=== PATIENT | male | born 1950 | race Caucasian/White ===

== ENCOUNTER 2017-09-16 12:36 | Outpatient (CLI) | payer OTHER ==
--- NOTE | 2017-09-16 13:43 | RAD ---
TWO VIEWS LEFT HIP: History: Fall. Pain. Comparison: None. FINDINGS: Contour of the femoral head is maintained. Hip joint space is preserved. No fracture. IMPRESSION: No fracture. POS: DANYEL
== END 2017-09-16 12:37 | disposition home or self-care (01) ==
LOC: SCSRAD 12:36
PROVIDERS: ATTEND Nurse Practitioner Family
DX: M25.552 Pain in left hip (principal)

== ENCOUNTER 2017-09-29 18:10 | Inpatient (IN) | payer OTHER, MEDICARE ==
[2017-09-29 19:44] VITALS: BMI 43.9
[2017-09-29] MEDS ORDERED: Ondansetron ODT 8 MG TAB PO PRN (23:21)
[2017-09-29] MEDS: Acetaminophen 325 MG TAB PO PRN (23:39)
[2017-09-29] MEDS ORDERED: Dextrose 5% in Water 1,000 ML IV PRN (23:41)
[2017-09-29] MEDS ORDERED: HumaLOG 300 UNITS/3 ML VIAL SC PRN (23:41)
[2017-09-29] MEDS ORDERED: Dextrose 50% Abboject 50 ML SYRINGE SLOW IVP PRN (23:41)
[2017-09-29] MEDS ORDERED: hydrOXYzine 25 MG TAB PO SCH (23:45)
--- NOTE | 2017-09-30 02:25 | HP ---
CHIEF COMPLAINT: Rash. HISTORY OF PRESENT ILLNESS: This patient is a 66-year-old male who has been dealing with a pruritic rash over his trunk since May. The patient reports that he started taking a new brand of ramipril in early May and within a week or two, he started developing some pruritic erythematous macules acr oss his chest area. That has continued to progress and spread to cover the majority of his body. It is now progressing up his neck and involves posterior scalp and extends down to his lower extremitie s. He reports that he has initial satellite lesions that become confluent. Now, he is developing so me lower extremity edema which is a new finding. The patient reports that he only stopped taking the ramipril about 3 weeks ago. In the interim, the patient has had numerous various treatments have at tempted without success. These have included multiple doses of prednisone, clindamycin, Diflucan, to lnaftate powder, betamethasone cream, ketoconazole and most recently, the patient saw Dr. Esquivel who is a professor of musicology. A skin biopsy was done, which appeared to be consistent with psoriasis and the pat ient was subsequently started on acitretin 25 mg b.i.d. Patient was on this for 4 days when he prese nted back to his PCP's office and was having some worsening of his rash with some generalized weaknes s and new swelling in the hands and feet. Subsequently, the patient was referred to the hospital for direct admission. The patient denies specifically having any fever, although he does get chill keyon use of the heat emanating from the erythema. The patient has had no recent travel and no lifestyle c hanges, contacts with insects or ticks. He has had some slight intermittent loose stools, but nothin g that he considered significantly abnormal. REVIEW OF SYSTEMS: Also notable for about 7-pound weight loss over the past couple of weeks, but he attributes that to being on the steroids and various things that have adversely affected his appetite . He has had poor sleep due to the itching. He has some normal presbyopia vision changes. He attri butes some weakness to some generalized fatigue after having dealt with this and sleeping poorly. PAST MEDICAL HISTORY: Notable for diabetes, hypertension, hyperlipidemia, and coronary artery diseas e. The patient has had 5 stents 15 years ago. He is continually followed by Dr. Woody. PAST SURGICAL HISTORY: He has had a cholecystectomy and a tonsillectomy. FAMILY HISTORY: Notable for a CVA and his father had at 55. Mother had diabetes. ALLERGIES: None. SOCIAL HISTORY: The patient is a nonsmoker, nondrinker, nondrug user. He is . He is [employer] [place] and his is the one, who is a surrogate decision maker. HOME MEDICATIONS: Include fish oil 1000 mg 1 p.o. b.i.d., ICAPS 1 p.o. every day, lysine 500 mg ever y day, aspirin 81 mg every day, carvedilol 25 mg b.i.d., acitretin 25 mg p.o. b.i.d., isosorbide mono nitrate ER 30 mg every day, Plavix 75 every day, ondansetron 5 mg p.o. t.i.d. p.r.n., Lopressor 50 mg p.o. b.i.d. (recent addition to replace the ramipril) and metformin 1000 mg p.o. b.i.d. PHYSICAL EXAMINATION: VITAL SIGNS: Temperature is 98.3, pulse 89, respirations 16. He is 100% on room air, BP was 180/87. GENERAL APPEARANCE: The patient is an extremely pleasant, jovial, age appropriate male. He is in no distress. He is awake, alert, oriented, pleasant, cooperative. He is morbidly obese. HEENT: PERRL. He has no OP lesions. NECK: Supple and symmetric. HEART: Regular rate and rhythm without murmurs, gallops, or rubs. LUNGS: Clear to auscultation bilaterally with good chest wall expansion and air exchange. ABDOMEN: Soft, nontender, nondistended with positive bowel sounds. No masses and no organomegaly. EXTREMITIES: Noted to have some puffy edema of the hands and 2+ to 3+ pitting edema of the lower ext remities to the level of the knee. SKIN: Reveals a diffuse erythematous skin from the jaw line and mid posterior scalp over the entire trunk and genital area including the upper thighs down to the mid calves where there are satellite ma cular areas that also extends down the upper extremities to the dorsum of the hands that appears to b e as sparing the fingers and palm on the upper trunk and to a lesser degree the lower trunk and pelvi s. In genitourinary area, the patient has a desquamation of the superficial skin with some exfoliati ve accumulation in the skin fold areas such as the pannus and axillary areas. LABORATORY DATA: The patient had glucose performed in the ER which was 100. There are some outside notes including labs in which the white count is 10.0, hemoglobin 13.8. There is no differential. C hemistries notable for BUN of 17, creatinine 0.9, total bilirubin 0.5, AST 16, ALT 21, alkaline phosp hatase 46, albumin 4.0. Again, the skin biopsy report is included as well. The microscopic descript ion indicates the biopsy specimen contains confluent parakeratosis containing small collections of ne utrophils beneath which there is moderate psoriasiform epidermal hyperplasia. There is dilated tortu ous blood vessels at the tips of some of the dermal papillae and there is a sparse superficial periva scular infiltrate of lymphocytes, histiocytes, and a few neutrophils. Cumulative additional labs ind icate the patient had two other CBCs going back in June without significant eosinophilia. IMPRESSION AND PLAN: 1. Diffuse dermatitis with some exfoliation that is significantly pruritic of unclear etiology. The patient's biopsy is consistent with psoriasis; however, the actual appearance of it in the distribut ion and the pruritic nature of it makes that challenging. The patient will be started on Atarax and H2 antagonist. We will not resume steroids at this time as the patient did not tolerate those very w ell and they did not seem to have a significant positive impact on him. I suspect this patient is small[place] ving a delayed drug eruption that has been ongoing as the patient continued to use the offending agen t up until 2-3 weeks ago. I suspect this is why the steroids were not having a significant impact on it as well. I am not clear if there is allergy immunology that is available to consult on this kenisha ent while here. I will check a CBC in the morning just with a manual differential to look for any ty pe of eosinophilia. We will monitor for any true fever, although it sounds like the patient really m ay not have actually been having fever. We will consider outpatient contact with Allergy/Immunology if they are not available, so that the patient can have a direct follow up there from this stay. 2. Diabetes mellitus. We will continue with Accu-Cheks and his usual home medications. 3. Hypertension. The patient had his ramipril recently discontinued and metoprolol added on top of the existing Coreg. We will continue those. 4. Hyperlipidemia. Continue with the current medications. 5. History of coronary artery disease. We will continue with the Plavix, aspirin, and isosorbide.
[2017-09-30 05:16] LABS: Hemoglobin 12.4 g/dL (14.0-18.0); Mean Corpuscular Hemoglobin 29.8 pg (27.0-31.0); Mean Corpuscular Volume 90.4 fL (78.0-98.0); Mean Platelet Volume 6.5 fL (7.4-10.4); Platelet Count 222 thou/uL (130-400); Red Blood Cell (RBC) Count 4.14 mill/uL (4.70-6.10); White Blood Cell (WBC) Count 9.3 thou/uL (4.8-10.8)
[2017-09-30 05:17] LABS: Band 1 % (5-11); Lymphocytes 44 % (21-51); MDiff Complete? YES; Monocytes 1 % (0-10); Neutrophil 54 % (42-75); PLT Morphology Comment Appears Adequate
[2017-09-30] MEDS: Acetaminophen 325 MG TAB PO PRN ×2 (05:34→09:58)
[2017-09-30 05:51] LABS: Bilirubin Negative (Negative); Blood, Urine Negative (Negative); Clarity CLEAR (Clear); Glucose, Urine (Dipstick) Negative (Negative); Leukocyte Negative (Negative); Nitrite Negative (Negative); Protein, Urine (Dipstick) 30 mg/dL (Neg-Trace); Specific Gravity, Urine 1.031 (1.002-1.036); Urobilinogen 0.2 mg/dL (0.2-1.0); pH, Urine 5.5 (5.0-9.0)
[2017-09-30 05:53] LABS: Bacteria/HPF None Seen HPF (None Seen); Hyaline Casts/LPF 4-6 HYALINE CAST LPF (0-3 Hyaline); Pathc Cast-AUWi Flag 1.01 (0-2.49); RBC/HPF 0-3 HPF (0-3); Squamous Epithelial 0-3 HPF (0-3); WBC/HPF 0-3 HPF (0-3)
[2017-09-30] MEDS: Clopidogrel Bisulfate 75 MG TAB PO SCH (09:19)
[2017-09-30] MEDS: Carvedilol 25 MG TAB PO SCH ×2 (09:19→22:02)
[2017-09-30] MEDS: Aspirin 81 mg Enteric Coated Tablet PO SCH (09:19)
[2017-09-30] MEDS: Famotidine 20 MG TAB PO SCH ×2 (09:20→22:28)
[2017-09-30] MEDS: Fish Oil 1,000 MG CAP PO SCH ×2 (09:20→22:02)
[2017-09-30] MEDS: hydrOXYzine 25 MG TAB PO SCH ×4 (09:20→22:02)
[2017-09-30] MEDS: Lysine 500 MG TAB PO SCH (09:20)
[2017-09-30] MEDS: Metoprolol Tartrate 50 MG TAB PO SCH (09:21)
[2017-09-30] MEDS: Vit A,C & E/Lutein/Minerals Tablet PO SCH (09:21)
[2017-09-30] MEDS: metFORMIN 500 MG TAB PO SCH ×2 (09:21→22:01)
[2017-09-30] MEDS ORDERED: Nystatin Powder 15 GM BOT TOP PRN (14:41)
[2017-09-30] MEDS ORDERED: diphenhydrAMINE 25 MG CAP PO PRN (14:42)
[2017-09-30] MEDS ORDERED: Sod Chloride/Lan/MO/Peet,Wh (Lubriderm) Lotion 180 ml Bottle TOP PRN (14:44)
[2017-09-30] MEDS: Sodium Chloride 0.9% 1,000 ML IV SCH (15:29)
[2017-09-30] MEDS: oxyCODONE 5 MG TAB PO PRN ×2 (16:24→22:17)
--- NOTE | 2017-09-30 20:52 | PDOC.PN ---
- Subjective Encounter Start Date: 09/30/17 Encounter Start Time: 12:30 Subjective: pt up in bed complains of itching all over - Objective Resuscitation Status: Resuscitation Status FULL:Full Resuscitation Vital Signs & Weight: Vital Signs (12 hours) Temp Pulse Resp BP Pulse Ox 09/30/17 20:00 98.2 F 80 16 155/78 H 95 09/30/17 17:39 98.2 F 82 20 100 09/30/17 17:15 97.7 F 83 16 146/82 H 100 09/30/17 15:01 98.2 F 82 20 132/66 97 09/30/17 11:03 97.8 F 76 20 141/74 H 94 L Weight Weight 306 lb 1.6 oz I&O: 09/29/17 09/30/17 10/01/17 06:59 06:59 06:59 Intake Total 360 600 Output Total 300 Balance 60 600 Result Diagrams: 10/01/17 09:22 10/01/17 09:22 Additional Labs: Accuchecks 09/30/17 09/30/17 09/30/17 16:52 11:09 05:27 POC Glucose 139 H 126 H 114 H 09/29/17 20:54 POC Glucose 100 Phys Exam - Physical Examination HEENT: PERRLA, moist MMs, sclera anicteric, TM's clear, oral pharynx no lesions , 2+ tonsils Neck: no nodes, no JVD, supple, full ROM Respiratory: no wheezing, no rales, no rhonchi, wheezing present, clear to auscultation bilateral Cardiovascular: RRR, no significant murmur, no rub, gallop, irregular Musculoskeletal: edema present Deviation from normal: significant erythema all over body, skin exfoliate all over, painful touch Dx/Plan (1) Erythroderm Code(s): L53.9 - ERYTHEMATOUS CONDITION, UNSPECIFIED Status: Acute (2) HTN (hypertension) Code(s): I10 - ESSENTIAL (PRIMARY) HYPERTENSION Status: Acute - Plan erythroderma most likely from ramipril -: will conitnue iv hydration -: significnat erythem and exfoliating all over body with edema -: concerns for possible infection and dehydration -: will start pt on abx * . Review of Systems - Review of Systems ENT: negative: Ear Pain, Ear Discharge, Nose Pain, Nose Discharge, Nose Congestion, Mouth Pain, Mouth Swelling, Throat Pain, Throat Swelling, Other Respiratory: negative: Cough, Dry, Shortness of Breath, Hemoptysis, SOB with Excertion, Pleuritic Pain, Sputum, Wheezing Cardiovascular: negative: chest pain, palpitations, orthopnea, paroxysmal nocturnal dyspnea, edema, light headedness, other Gastrointestinal: negative: Nausea, Vomiting, Abdominal Pain, Diarrhea, Constipation, Melena, Hematochezia, Other Genitourinary: negative: Dysuria, Frequency, Incontinence, Hematuria, Retention , Other Skin: Rash - Medications/Allergies Allergies/Adverse Reactions: Allergies Allergy/AdvReac Type Severity Reaction Status Date / Time No Known Drug Allergies Allergy Verified 09/29/17 19:51 Medications: Current Medications Acetaminophen (Tylenol) 650 mg PO Q4H PRN PRN Reason: Headache/Fever or Pain Last Admin: 10/01/17 11:25 Dose: 650 mg Aspirin (Ecotrin) 81 mg PO DAILY [facility] Last Admin: 10/01/17 08:00 Dose: 81 mg Carvedilol (Coreg) 25 mg PO BID [facility] Last Admin: 10/01/17 08:01 Dose: 25 mg Clopidogrel Bisulfate (Plavix) 75 mg PO DAILY [facility] Last Admin: 10/01/17 08:00 Dose: 75 mg Dextrose/Water (Dextrose 50%) 25 gm SLOW IVP PRN PRN PRN Reason: Hypoglycemia Diphenhydramine HCl (Benadryl) 25 mg PO Q6H PRN PRN Reason: Itching & Insomnia Famotidine (Pepcid) 20 mg PO BID [facility] Last Admin: 10/01/17 08:01 Dose: 20 mg Fish Oil (Fish Oil) 1,000 mg PO BID [facility] Last Admin: 10/01/17 08:00 Dose: 1,000 mg Glucagon (Glucagon) 1 mg IM PRN PRN PRN Reason: Hypoglycemia Hydroxyzine HCl (Atarax) 25 mg PO QID [facility] Last Admin: 10/01/17 12:50 Dose: 25 mg Dextrose/Water (D5w) 1,000 mls @ 0 mls/hr IV .Q0M PRN PRN Reason: Hypoglycemia Sodium Chloride (Normal Saline 0.9%) 1,000 mls @ 100 mls/hr IV .Q10H [facility] Last Admin: 10/01/17 11:15 Dose: Not Given Insulin Human Lispro (Humalog) 0 units SC .MILD SLIDING SCALE PRN PRN Reason: Mild Correctional Scale Isosorbide Mononitrate (Imdur Er) 30 mg PO DAILY [facility] Last Admin: 10/01/17 08:01 Dose: 30 mg Lysine (L-Lysine) 500 mg PO DAILY [facility] Last Admin: 10/01/17 08:01 Dose: 500 mg Metformin HCl (Glucophage) 1,000 mg PO BID [facility] Last Admin: 10/01/17 08:00 Dose: 1,000 mg Metoprolol Tartrate (Lopressor) 50 mg PO DAILY [facility] Last Admin: 10/01/17 08:01 Dose: 50 mg Multi-Ingredient Lotion (Lubriderm Lotion) 0 ml TOP Q4H PRN PRN Reason: Topical Irritations Last Admin: 09/30/17 22:21 Dose: 1 applic Multivitamins/Minerals (Ocuvite With Lutein) 1 tab PO DAILY [facility] Last Admin: 10/01/17 08:00 Dose: 1 tab Nystatin (Mycostatin Powder) 0 gm TOP BID PRN PRN Reason: Topical Irritations Ondansetron HCl (Zofran Odt) 8 mg PO TIDPRN PRN PRN Reason: Nausea Oxycodone HCl (Oxycodone Ir) 5 mg PO Q4H PRN PRN Reason: Mild Pain (1-3) Last Admin: 09/30/17 22:17 Dose: 5 mg
[2017-10-01] MEDS: Sodium Chloride 0.9% 1,000 ML IV SCH ×3 (02:35→22:35)
[2017-10-01] MEDS: Fish Oil 1,000 MG CAP PO SCH ×2 (08:00→20:28)
[2017-10-01] MEDS: Aspirin 81 mg Enteric Coated Tablet PO SCH (08:00)
[2017-10-01] MEDS: metFORMIN 500 MG TAB PO SCH ×2 (08:00→20:28)
[2017-10-01] MEDS: Clopidogrel Bisulfate 75 MG TAB PO SCH (08:00)
[2017-10-01] MEDS: Vit A,C & E/Lutein/Minerals Tablet PO SCH (08:00)
[2017-10-01] MEDS: Lysine 500 MG TAB PO SCH (08:01)
[2017-10-01] MEDS: Carvedilol 25 MG TAB PO SCH ×2 (08:01→20:28)
[2017-10-01] MEDS: hydrOXYzine 25 MG TAB PO SCH ×4 (08:01→20:28)
[2017-10-01] MEDS: Metoprolol Tartrate 50 MG TAB PO SCH (08:01)
[2017-10-01] MEDS: Famotidine 20 MG TAB PO SCH ×2 (08:01→20:28)
[2017-10-01 09:57] LABS: #Eosinphils 0.4 thou/uL (0.0-0.7); #Lymphocytes 1.8 thou/uL (1.20-3.40); #Monocytes 0.7 thou/uL (0.11-0.59); #Neutrophils 6.5 thou/uL (1.40-6.50); %Basophils 0.5 % (0.0-1.0); %Eosinophils 4.6 % (0.0-10.0); %Lymphocytes 18.8 % (21.0-51.0); %Monocytes 7.8 % (0.0-10.0); %Neutrophils 68.3 % (42.0-75.0); Hemoglobin 13.3 g/dL (14.0-18.0); Mean Corpuscular Volume 90.8 fL (78.0-98.0); Mean Platelet Volume 6.7 fL (7.4-10.4); Platelet Count 219 thou/uL (130-400); RBC Distribution Width 14.9 % (11.5-14.5); Red Blood Cell (RBC) Count 4.45 mill/uL (4.70-6.10); White Blood Cell (WBC) Count 9.4 thou/uL (4.8-10.8)
[2017-10-01 10:10] LABS: Anion Gap 11 mmol/L (10-20); BUN (Urea Nitrogen) 9 mg/dL (8.4-25.7); Calc. Creatinine Clearance 168 mL/min (70-130); Calcium 8.6 mg/dL (7.8-10.44); Carbon Dioxide 27 mmol/L (23-31); Chloride 108 mmol/L (98-107); Estimated GFR-MDRD Greater than 90; Glucose 129 mg/dL (80-115); Potassium 4.3 mmol/L (3.5-5.1); Sodium 142 mmol/L (136-145)
[2017-10-01] MEDS: Acetaminophen 325 MG TAB PO PRN (11:25)
--- NOTE | 2017-10-01 14:53 | PDOC.PN ---
- Subjective Encounter Start Date: 10/01/17 Encounter Start Time: 10:55 Subjective: pt up in bed states he feels a little better - Objective Resuscitation Status: Resuscitation Status FULL:Full Resuscitation Vital Signs & Weight: Vital Signs (12 hours) Temp Pulse Resp BP Pulse Ox 10/01/17 11:40 97.6 F 80 20 161/89 H 97 10/01/17 08:00 98.7 F 82 18 136/85 97 Weight Weight 306 lb 1.6 oz I&O: 09/30/17 10/01/17 10/02/17 06:59 06:59 06:59 Intake Total 360 600 720 Output Total 300 Balance 60 600 720 Result Diagrams: 10/01/17 09:22 10/01/17 09:22 Additional Labs: Accuchecks 10/01/17 10/01/17 09/30/17 11:37 04:56 16:52 POC Glucose 92 110 139 H Phys Exam - Physical Examination HEENT: PERRLA, moist MMs, sclera anicteric, TM's clear, oral pharynx no lesions , 2+ tonsils Neck: no nodes, no JVD, supple, full ROM Respiratory: no wheezing, no rales, no rhonchi, wheezing present, clear to auscultation bilateral Cardiovascular: RRR, no significant murmur, no rub, gallop, irregular Deviation from normal: significant erythema all over, skin is sloughing off Dx/Plan (1) Erythroderm Code(s): L53.9 - ERYTHEMATOUS CONDITION, UNSPECIFIED Status: Acute (2) HTN (hypertension) Code(s): I10 - ESSENTIAL (PRIMARY) HYPERTENSION Status: Acute - Plan will continue iv hydration, edema to his upper and lower ext has improved -: mildly. will continue abx for now. * . Review of Systems - Review of Systems ENT: negative: Ear Pain, Ear Discharge, Nose Pain, Nose Discharge, Nose Congestion, Mouth Pain, Mouth Swelling, Throat Pain, Throat Swelling, Other Respiratory: negative: Cough, Dry, Shortness of Breath, Hemoptysis, SOB with Excertion, Pleuritic Pain, Sputum, Wheezing Cardiovascular: negative: chest pain, palpitations, orthopnea, paroxysmal nocturnal dyspnea, edema, light headedness, other Gastrointestinal: negative: Nausea, Vomiting, Abdominal Pain, Diarrhea, Constipation, Melena, Hematochezia, Other Genitourinary: negative: Dysuria, Frequency, Incontinence, Hematuria, Retention , Other Skin: Rash - Medications/Allergies Allergies/Adverse Reactions: Allergies Allergy/AdvReac Type Severity Reaction Status Date / Time No Known Drug Allergies Allergy Verified 09/29/17 19:51 Medications: Current Medications Acetaminophen (Tylenol) 650 mg PO Q4H PRN PRN Reason: Headache/Fever or Pain Last Admin: 10/01/17 11:25 Dose: 650 mg Aspirin (Ecotrin) 81 mg PO DAILY [facility] [place] Last Admin: 10/01/17 08:00 Dose: 81 mg Carvedilol (Coreg) 25 mg PO BID [facility] [place] Last Admin: 10/01/17 08:01 Dose: 25 mg Clopidogrel Bisulfate (Plavix) 75 mg PO DAILY [facility] [place] Last Admin: 10/01/17 08:00 Dose: 75 mg Dextrose/Water (Dextrose 50%) 25 gm SLOW IVP PRN PRN PRN Reason: Hypoglycemia Diphenhydramine HCl (Benadryl) 25 mg PO Q6H PRN PRN Reason: Itching & Insomnia Famotidine (Pepcid) 20 mg PO BID [facility] [place] Last Admin: 10/01/17 08:01 Dose: 20 mg Fish Oil (Fish Oil) 1,000 mg PO BID [facility] [place] Last Admin: 10/01/17 08:00 Dose: 1,000 mg Glucagon (Glucagon) 1 mg IM PRN PRN PRN Reason: Hypoglycemia Hydroxyzine HCl (Atarax) 25 mg PO QID [facility] Last Admin: 10/01/17 12:50 Dose: 25 mg Dextrose/Water (D5w) 1,000 mls @ 0 mls/hr IV .Q0M PRN PRN Reason: Hypoglycemia Sodium Chloride (Normal Saline 0.9%) 1,000 mls @ 100 mls/hr IV .Q10H [facility] [place] Last Admin: 10/01/17 11:15 Dose: Not Given Insulin Human Lispro (Humalog) 0 units SC .MILD SLIDING SCALE PRN PRN Reason: Mild Correctional Scale Isosorbide Mononitrate (Imdur Er) 30 mg PO DAILY [facility] [place] Last Admin: 10/01/17 08:01 Dose: 30 mg Lysine (L-Lysine) 500 mg PO DAILY [facility] Last Admin: 10/01/17 08:01 Dose: 500 mg Metformin HCl (Glucophage) 1,000 mg PO BID [facility] [place] Last Admin: 10/01/17 08:00 Dose: 1,000 mg Metoprolol Tartrate (Lopressor) 50 mg PO DAILY [facility] [place] Last Admin: 10/01/17 08:01 Dose: 50 mg Multi-Ingredient Lotion (Lubriderm Lotion) 0 ml TOP Q4H PRN PRN Reason: Topical Irritations Last Admin: 09/30/17 22:21 Dose: 1 applic Multivitamins/Minerals (Ocuvite With Lutein) 1 tab PO DAILY [facility] [place] Last Admin: 10/01/17 08:00 Dose: 1 tab Nystatin (Mycostatin Powder) 0 gm TOP BID PRN PRN Reason: Topical Irritations Ondansetron HCl (Zofran Odt) 8 mg PO TIDPRN PRN PRN Reason: Nausea Oxycodone HCl (Oxycodone Ir) 5 mg PO Q4H PRN PRN Reason: Mild Pain (1-3) Last Admin: 09/30/17 22:17 Dose: 5 mg
[2017-10-01] MEDS: Cephalexin 250 MG CAP PO SCH (17:13)
[2017-10-02] MEDS: Cephalexin 250 MG CAP PO SCH ×4 (00:15→16:38)
[2017-10-02] MEDS: Sodium Chloride 0.9% 1,000 ML IV SCH (07:45)
[2017-10-02] MEDS: Metoprolol Tartrate 50 MG TAB PO SCH (07:46)
[2017-10-02] MEDS: metFORMIN 500 MG TAB PO SCH ×2 (07:46→20:48)
[2017-10-02] MEDS: Fish Oil 1,000 MG CAP PO SCH ×2 (07:46→20:48)
[2017-10-02] MEDS: oxyCODONE 5 MG TAB PO PRN (07:46)
[2017-10-02] MEDS: Aspirin 81 mg Enteric Coated Tablet PO SCH (07:47)
[2017-10-02] MEDS: Famotidine 20 MG TAB PO SCH ×2 (07:47→20:48)
[2017-10-02] MEDS: Clopidogrel Bisulfate 75 MG TAB PO SCH (07:47)
[2017-10-02] MEDS: Lysine 500 MG TAB PO SCH (07:47)
[2017-10-02] MEDS: Vit A,C & E/Lutein/Minerals Tablet PO SCH (07:47)
[2017-10-02] MEDS: Carvedilol 25 MG TAB PO SCH ×2 (07:47→20:48)
[2017-10-02] MEDS: hydrOXYzine 25 MG TAB PO SCH ×4 (08:51→20:48)
[2017-10-02] MEDS ORDERED: Furosemide 40 MG/4 ML VIAL SLOW IVP SCH (14:15)
[2017-10-02] MEDS: Betamethasone 0.1% Cream 15 GM TUBE TOP SCH ×2 (16:38→20:48)
[2017-10-02] MEDS ORDERED: traMADol HCl 50 MG TAB PO PRN (17:20)
[2017-10-02] MEDS ORDERED: Nystatin Ointment 15 GM TUBE TOP PRN (17:22)
--- NOTE | 2017-10-02 17:23 | PDOC.PN ---
- Subjective Encounter Start Date: 10/02/17 Encounter Start Time: 11:00 Subjective: pt up in bed complains of itching - Objective Resuscitation Status: Resuscitation Status FULL:Full Resuscitation Vital Signs & Weight: Vital Signs (12 hours) Temp Pulse Resp BP Pulse Ox 10/02/17 08:00 97.8 F 79 18 124/74 96 Weight Weight 306 lb 1.6 oz I&O: 10/01/17 10/02/17 10/03/17 06:59 06:59 06:59 Intake Total 600 1080 600 Balance 600 1080 600 Result Diagrams: 10/01/17 09:22 10/01/17 09:22 Additional Labs: Accuchecks 10/02/17 10/02/17 11:19 06:20 POC Glucose 93 93 Phys Exam - Physical Examination HEENT: PERRLA, moist MMs, sclera anicteric, TM's clear, oral pharynx no lesions , 2+ tonsils Neck: no nodes, no JVD, supple, full ROM Respiratory: no wheezing, no rales, no rhonchi, wheezing present, clear to auscultation bilateral Cardiovascular: RRR, no significant murmur, no rub, gallop, irregular Musculoskeletal: no edema, pulses present, edema present Deviation from normal: significant edema, erythema still present all over Dx/Plan (1) Erythroderm Code(s): L53.9 - ERYTHEMATOUS CONDITION, UNSPECIFIED Status: Acute (2) HTN (hypertension) Code(s): I10 - ESSENTIAL (PRIMARY) HYPERTENSION Status: Acute - Plan will disconitnue fluids for now -: will give lasix -: will start on steroid cream * . Review of Systems - Review of Systems ENT: negative: Ear Pain, Ear Discharge, Nose Pain, Nose Discharge, Nose Congestion, Mouth Pain, Mouth Swelling, Throat Pain, Throat Swelling, Other Respiratory: negative: Cough, Dry, Shortness of Breath, Hemoptysis, SOB with Excertion, Pleuritic Pain, Sputum, Wheezing Cardiovascular: negative: chest pain, palpitations, orthopnea, paroxysmal nocturnal dyspnea, edema, light headedness, other Gastrointestinal: negative: Nausea, Vomiting, Abdominal Pain, Diarrhea, Constipation, Melena, Hematochezia, Other Skin: Rash - Medications/Allergies Allergies/Adverse Reactions: Allergies Allergy/AdvReac Type Severity Reaction Status Date / Time No Known Drug Allergies Allergy Verified 09/29/17 19:51 Medications: Current Medications Acetaminophen (Tylenol) 650 mg PO Q4H PRN PRN Reason: Headache/Fever or Pain Last Admin: 10/01/17 11:25 Dose: 650 mg Aspirin (Ecotrin) 81 mg PO DAILY [facility] Last Admin: 10/02/17 07:47 Dose: 81 mg Betamethasone Valerate (Valisone 0.1% Cream) 1 gm TOP QID [facility] Last Admin: 10/02/17 16:38 Dose: 1 applic Carvedilol (Coreg) 25 mg PO BID [facility] Last Admin: 10/02/17 07:47 Dose: 25 mg Cephalexin (Keflex) 250 mg PO Q6HR [facility] Last Admin: 10/02/17 16:38 Dose: 250 mg Clopidogrel Bisulfate (Plavix) 75 mg PO DAILY [facility] Last Admin: 10/02/17 07:47 Dose: 75 mg Dextrose/Water (Dextrose 50%) 25 gm SLOW IVP PRN PRN PRN Reason: Hypoglycemia Diphenhydramine HCl (Benadryl) 25 mg PO Q6H PRN PRN Reason: Itching & Insomnia Famotidine (Pepcid) 20 mg PO BID [facility] Last Admin: 10/02/17 07:47 Dose: 20 mg Fish Oil (Fish Oil) 1,000 mg PO BID [facility] Last Admin: 10/02/17 07:46 Dose: 1,000 mg Furosemide (Lasix) 40 mg SLOW IVP ONE [facility] Glucagon (Glucagon) 1 mg IM PRN PRN PRN Reason: Hypoglycemia Hydroxyzine HCl (Atarax) 25 mg PO QID [facility] Last Admin: 10/02/17 16:38 Dose: 25 mg Dextrose/Water (D5w) 1,000 mls @ 0 mls/hr IV .Q0M PRN PRN Reason: Hypoglycemia Insulin Human Lispro (Humalog) 0 units SC .MILD SLIDING SCALE PRN PRN Reason: Mild Correctional Scale Isosorbide Mononitrate (Imdur Er) 30 mg PO DAILY [facility] Last Admin: 10/02/17 07:46 Dose: 30 mg Lysine (L-Lysine) 500 mg PO DAILY [facility] Last Admin: 10/02/17 07:47 Dose: 500 mg Metformin HCl (Glucophage) 1,000 mg PO BID [facility] Last Admin: 10/02/17 07:46 Dose: 1,000 mg Metoprolol Tartrate (Lopressor) 50 mg PO DAILY [facility] Last Admin: 10/02/17 07:46 Dose: 50 mg Multi-Ingredient Lotion (Lubriderm Lotion) 0 ml TOP Q4H PRN PRN Reason: Topical Irritations Last Admin: 09/30/17 22:21 Dose: 1 applic Multivitamins/Minerals (Ocuvite With Lutein) 1 tab PO DAILY [facility] Last Admin: 10/02/17 07:47 Dose: 1 tab Nystatin (Mycostatin Powder) 0 gm TOP BID PRN PRN Reason: Topical Irritations Ondansetron HCl (Zofran Odt) 8 mg PO TIDPRN PRN PRN Reason: Nausea Oxycodone HCl (Oxycodone Ir) 5 mg PO Q4H PRN PRN Reason: Mild Pain (1-3) Last Admin: 10/02/17 07:46 Dose: 5 mg Tramadol HCl (Ultram) 50 mg PO Q6H PRN PRN Reason: Pain
[2017-10-03] MEDS: Cephalexin 250 MG CAP PO SCH ×4 (00:08→18:00)
[2017-10-03 05:16] LABS: #Eosinphils 0.4 thou/uL (0.0-0.7); #Lymphocytes 2.1 thou/uL (1.20-3.40); #Monocytes 1.1 thou/uL (0.11-0.59); #Neutrophils 6.2 thou/uL (1.40-6.50); %Basophils 0.5 % (0.0-1.0); %Eosinophils 4.4 % (0.0-10.0); %Lymphocytes 21.1 % (21.0-51.0); %Monocytes 10.8 % (0.0-10.0); %Neutrophils 63.2 % (42.0-75.0); Hemoglobin 12.3 g/dL (14.0-18.0); Mean Corpuscular HGB CONC 32.3 g/dL (32.0-36.0); Mean Corpuscular Hemoglobin 29.1 pg (27.0-31.0); Mean Corpuscular Volume 89.8 fL (78.0-98.0); Mean Platelet Volume 6.6 fL (7.4-10.4); Platelet Count 211 thou/uL (130-400); RBC Distribution Width 14.9 % (11.5-14.5); Red Blood Cell (RBC) Count 4.23 mill/uL (4.70-6.10); White Blood Cell (WBC) Count 9.7 thou/uL (4.8-10.8)
[2017-10-03] MEDS ORDERED: Furosemide 40 MG/4 ML VIAL SLOW IVP SCH ×2 (06:00→15:30)
[2017-10-03] MEDS: Betamethasone 0.1% Cream 15 GM TUBE TOP SCH ×4 (09:00→20:36)
[2017-10-03] MEDS: Aspirin 81 mg Enteric Coated Tablet PO SCH (09:00)
[2017-10-03] MEDS: Clopidogrel Bisulfate 75 MG TAB PO SCH (09:01)
[2017-10-03] MEDS: Famotidine 20 MG TAB PO SCH ×2 (09:01→20:34)
[2017-10-03] MEDS: hydrOXYzine 25 MG TAB PO SCH ×2 (09:01→12:19)
[2017-10-03] MEDS: Fish Oil 1,000 MG CAP PO SCH ×2 (09:01→20:34)
[2017-10-03] MEDS: Carvedilol 25 MG TAB PO SCH ×2 (09:01→20:35)
[2017-10-03] MEDS: Vit A,C & E/Lutein/Minerals Tablet PO SCH (09:02)
[2017-10-03] MEDS: metFORMIN 500 MG TAB PO SCH ×2 (09:02→20:34)
[2017-10-03] MEDS: Metoprolol Tartrate 50 MG TAB PO SCH (09:02)
[2017-10-03] MEDS: Lysine 500 MG TAB PO SCH (09:02)
--- NOTE | 2017-10-03 15:27 | PDOC.PN ---
- Subjective Encounter Start Date: 10/03/17 Encounter Start Time: 10:30 Subjective: pt up in bed feels better today - Objective Resuscitation Status: Resuscitation Status FULL:Full Resuscitation Vital Signs & Weight: Vital Signs (12 hours) Temp Pulse Resp BP Pulse Ox 10/03/17 11:33 98 F 84 20 144/94 H 100 10/03/17 08:00 97.6 F 88 20 123/74 97 Weight Weight 306 lb 1.6 oz I&O: 10/02/17 10/03/17 10/04/17 06:59 06:59 06:59 Intake Total 1080 960 Balance 1080 960 Result Diagrams: 10/03/17 04:25 10/01/17 09:22 Additional Labs: Accuchecks 10/03/17 10/03/17 10/02/17 11:31 05:39 19:21 POC Glucose 119 H 102 102 10/02/17 16:44 POC Glucose 138 H Phys Exam - Physical Examination Neck: no nodes, no JVD, supple, full ROM Respiratory: no wheezing, no rales, no rhonchi, wheezing present, clear to auscultation bilateral Cardiovascular: RRR, no significant murmur, no rub, gallop, irregular Gastrointestinal: soft, non-tender, no distention, positive bowel sounds Psychiatric: normal affect, A&O x 3 Deviation from normal: mild wheeping to lower ext, rash is improving Dx/Plan (1) Erythroderm Code(s): L53.9 - ERYTHEMATOUS CONDITION, UNSPECIFIED Status: Acute (2) HTN (hypertension) Code(s): I10 - ESSENTIAL (PRIMARY) HYPERTENSION Status: Acute - Plan will give lasix bid, pt's rash is improving -: possible discharge in am -: will discontinue atarax since pt was confused last night * . Review of Systems - Review of Systems ENT: negative: Ear Pain, Ear Discharge, Nose Pain, Nose Discharge, Nose Congestion, Mouth Pain, Mouth Swelling, Throat Pain, Throat Swelling, Other Respiratory: negative: Cough, Dry, Shortness of Breath, Hemoptysis, SOB with Excertion, Pleuritic Pain, Sputum, Wheezing Skin: Rash, Other (has some wheeping to lower ext) - Medications/Allergies Allergies/Adverse Reactions: Allergies Allergy/AdvReac Type Severity Reaction Status Date / Time No Known Drug Allergies Allergy Verified 09/29/17 19:51 Medications: Current Medications Acetaminophen (Tylenol) 650 mg PO Q4H PRN PRN Reason: Headache/Fever or Pain Last Admin: 10/01/17 11:25 Dose: 650 mg Aspirin (Ecotrin) 81 mg PO DAILY [facility] Last Admin: 10/03/17 09:00 Dose: 81 mg Betamethasone Valerate (Valisone 0.1% Cream) 1 gm TOP QID [facility] Last Admin: 10/03/17 12:19 Dose: 1 applic Carvedilol (Coreg) 25 mg PO BID [facility] Last Admin: 10/03/17 09:01 Dose: 25 mg Cephalexin (Keflex) 250 mg PO Q6HR [facility] Last Admin: 10/03/17 12:12 Dose: 250 mg Clopidogrel Bisulfate (Plavix) 75 mg PO DAILY [facility] Last Admin: 10/03/17 09:01 Dose: 75 mg Dextrose/Water (Dextrose 50%) 25 gm SLOW IVP PRN PRN PRN Reason: Hypoglycemia Diphenhydramine HCl (Benadryl) 25 mg PO Q6H PRN PRN Reason: Itching & Insomnia Famotidine (Pepcid) 20 mg PO BID [facility] Last Admin: 10/03/17 09:01 Dose: 20 mg Fish Oil (Fish Oil) 1,000 mg PO BID [facility] Last Admin: 10/03/17 09:01 Dose: 1,000 mg Furosemide (Lasix) 40 mg SLOW IVP 0600,1400 [facility] Furosemide (Lasix) 40 mg SLOW IVP ONE [facility] Glucagon (Glucagon) 1 mg IM PRN PRN PRN Reason: Hypoglycemia Dextrose/Water (D5w) 1,000 mls @ 0 mls/hr IV .Q0M PRN PRN Reason: Hypoglycemia Insulin Human Lispro (Humalog) 0 units SC .MILD SLIDING SCALE PRN PRN Reason: Mild Correctional Scale Isosorbide Mononitrate (Imdur Er) 30 mg PO DAILY [facility] Last Admin: 10/03/17 09:01 Dose: 30 mg Lysine (L-Lysine) 500 mg PO DAILY [facility] Last Admin: 10/03/17 09:02 Dose: 500 mg Metformin HCl (Glucophage) 1,000 mg PO BID [facility] Last Admin: 10/03/17 09:02 Dose: 1,000 mg Metoprolol Tartrate (Lopressor) 50 mg PO DAILY [facility] Last Admin: 10/03/17 09:02 Dose: 50 mg Multi-Ingredient Lotion (Lubriderm Lotion) 0 ml TOP Q4H PRN PRN Reason: Topical Irritations Last Admin: 09/30/17 22:21 Dose: 1 applic Multivitamins/Minerals (Ocuvite With Lutein) 1 tab PO DAILY [facility] Last Admin: 10/03/17 09:02 Dose: 1 tab Nystatin (Mycostatin Powder) 0 gm TOP BID PRN PRN Reason: Topical Irritations Nystatin (Mycostatin Ointment) 1 gm TOP QID PRN PRN Reason: Allergies Ondansetron HCl (Zofran Odt) 8 mg PO TIDPRN PRN PRN Reason: Nausea Oxycodone HCl (Oxycodone Ir) 5 mg PO Q4H PRN PRN Reason: Mild Pain (1-3) Last Admin: 10/02/17 07:46 Dose: 5 mg Tramadol HCl (Ultram) 50 mg PO Q6H PRN PRN Reason: Pain
[2017-10-03 16:58] LABS: Anion Gap 17 mmol/L (10-20); BUN (Urea Nitrogen) 10 mg/dL (8.4-25.7); Calc. Creatinine Clearance 145 mL/min (70-130); Calcium 9.4 mg/dL (7.8-10.44); Carbon Dioxide 25 mmol/L (23-31); Chloride 103 mmol/L (98-107); Estimated GFR-MDRD 77; Glucose 156 mg/dL (80-115); Potassium 3.9 mmol/L (3.5-5.1); Sodium 141 mmol/L (136-145)
[2017-10-03] MEDS ORDERED: Triamcinolone 0.025 % Cream 15GM TUBE TOP SCH (17:00)
[2017-10-04] MEDS: Cephalexin 250 MG CAP PO SCH ×3 (01:20→12:57)
[2017-10-04 04:51] LABS: Anion Gap 14 mmol/L (10-20); BUN (Urea Nitrogen) 10 mg/dL (8.4-25.7); Calc. Creatinine Clearance 170 mL/min (70-130); Calcium 8.7 mg/dL (7.8-10.44); Carbon Dioxide 29 mmol/L (23-31); Chloride 104 mmol/L (98-107); Estimated GFR-MDRD Greater than 90; Glucose 105 mg/dL (80-115); Potassium 3.6 mmol/L (3.5-5.1); Sodium 143 mmol/L (136-145)
[2017-10-04] MEDS: Furosemide 40 MG/4 ML VIAL SLOW IVP SCH ×2 (06:14→12:57)
[2017-10-04] MEDS: Clopidogrel Bisulfate 75 MG TAB PO SCH (09:01)
[2017-10-04] MEDS: Aspirin 81 mg Enteric Coated Tablet PO SCH (09:01)
[2017-10-04] MEDS: Carvedilol 25 MG TAB PO SCH (09:01)
[2017-10-04] MEDS: Betamethasone 0.1% Cream 15 GM TUBE TOP SCH ×2 (09:01→12:58)
[2017-10-04] MEDS: Lysine 500 MG TAB PO SCH (09:02)
[2017-10-04] MEDS: metFORMIN 500 MG TAB PO SCH (09:02)
[2017-10-04] MEDS: Famotidine 20 MG TAB PO SCH (09:02)
[2017-10-04] MEDS: Metoprolol Tartrate 50 MG TAB PO SCH (09:02)
[2017-10-04] MEDS: Fish Oil 1,000 MG CAP PO SCH (09:02)
[2017-10-04] MEDS: Vit A,C & E/Lutein/Minerals Tablet PO SCH (09:02)
[2017-10-04 13:54] VITALS: BP 121/77; TEMP 97.9
--- NOTE | 2017-10-04 23:11 | DIS ---
DATE OF ADMISSION: 09/29/2017 DATE OF DISCHARGE: 10/04/2017 DISCHARGE DIAGNOSES: As of the followin. Erythroderma secondary to medication induced. 2. Hypertension. 3. Diabetes. HOSPITAL COURSE: The patient is a very pleasant 66-year-old male who initially presented to the hosp ital with generalized swelling and erythematous rash on his body except sparing the mucous membranes of his mouth. The patient at this time had no eosinophilia and was noted to be taking ramipril. The re was some question if this was secondary to switching our different branding of the ramipril since the patient has been on ramipril for about 2 years. However, the patient did actually try switching back to the normal formulary of the ramipril and started getting worse with just one dose. At this t chelsey, ramipril has been discontinued. He did have mildly elevated CRP; however, normal sed rate. Anayeli ho has been having this for the past week or so. However, initially he came into the hospital keyon use of the worsening swelling. Patient initially was hydrated with IV fluids. He was also put on an tibiotics for prophylaxis for possible skin infection. He was put on hydrocortisone cream which help ed dramatically, also was put on some Pepcid and Atarax for itching. The patient continued to improv e throughout the hospital stay. However, towards the end, he started having significant lower extrem ity edema for which he was treated with IV Lasix and he responded really well to that. He will be se nt home with p.o. Lasix for about 5 days. He will follow up with PCP as outpatient. HOME MEDICATIONS: His home medications are as the following: Aspirin 81 mg daily, carvedilol 25 mg b.i.d., isosorbide 30 mg daily, clopidogrel 70 mg daily, metoprolol 50 mg daily, metformin 1000 mg b. i.d., Lasix 40 mg daily, Pepcid 20 mg b.i.d., and betamethasone valerate topical 45 grams q.i.d. The patient was on vitamin A supplement orally. I did tell the patient to discontinue that and follow u p with Ophthalmology to see why he is on this since he has been on it for about 2 years now. DISCHARGE PHYSICAL EXAMINATION: VITAL SIGNS: 98.7, 84, 16, 95, 121/77. GENERAL: He is awake, alert, oriented x3, does not appear in distress. CARDIOVASCULAR: S1, S2 present. No murmurs, rubs, or gallops. ABDOMEN: Soft, nontender. Bowel sounds present x2. EXTREMITIES: Mild edema. Pedal pulses are present x2. Mild +1 edema, improved from before. DISCHARGE INSTRUCTION: Again, the patient will be discharged home. Follow with PCP.
== END 2017-10-04 13:24 | disposition home or self-care (01) | DRG 596 ==
LOC: 2SW 18:10 → OBSVTOIN 18:10 → T4-A 09-30 17:01
PROVIDERS: ADMIT Internal Medicine; ATTEND Internal Medicine
DX: L40.9 Psoriasis, unspecified (principal); Z68.41 Body mass index [BMI] 40.0-44.9, adult; L53.9 Erythematous condition, unspecified; E11.9 Type 2 diabetes mellitus without complications; I10 Essential (primary) hypertension; E78.5 Hyperlipidemia, unspecified; I25.10 Atherosclerotic heart disease of native coronary artery without angina pectoris; T46.4X5A Adverse effect of angiotensin-converting-enzyme inhibitors, initial encounter; E66.01 Morbid (severe) obesity due to excess calories; Z79.82 Long term (current) use of aspirin; Z79.02 Long term (current) use of antithrombotics/antiplatelets; Z79.84 Long term (current) use of oral hypoglycemic drugs; Z95.5 Presence of coronary angioplasty implant and graft; Z90.49 Acquired absence of other specified parts of digestive tract; Z82.3 Family history of stroke; Z83.3 Family history of diabetes mellitus
CPT/HCPCS: 36415; 36416; 80048; 81003; 81015; 85007; 85025; 85027; 85652; 86140; J1940

== ENCOUNTER 2017-10-31 10:03 | Outpatient (CLI) | payer OTHER ==
--- NOTE | 2017-10-31 12:01 | RAD ---
CHEST 1 VIEW: HISTORY: Tuberculosis evaluation. COMPARISON: 12/28/16. FINDINGS: Cardiac silhouette is unremarkable. Shallow inspiration accentuates the pulmonary markings. No conf luent airspace consolidation, pneumothorax, or pleural fluid. IMPRESSION: No active cardiopulmonary abnormalities are demonstrated. POS: [facility]
[2017-10-31 14:39] LABS: HBCM Index 0.06 S/CO (0-0.79); HBSAg Index 0.22 S/CO (0-0.99); Hep A IgM AB Non-Reactive (NonReactive); Hep A IgM S/CO 0.08 S/CO (0-0.79); Hep B Surf Ag Non-Reactive S/CO (NonReactive); Hep C IgG Ab Non-Reactive (NonReactive); Hepatitis B Core IGM Abs Non-Reactive (NonReactive)
== END 2017-10-31 10:04 | disposition home or self-care (01) ==
LOC: SCSRAD 10:03
PROVIDERS: ATTEND Physician Assistant Medical
DX: L40.0 Psoriasis vulgaris (principal); L40.8 Other psoriasis
CPT/HCPCS: 36415; 71046; 80074; 86480

== ENCOUNTER 2019-03-29 09:31 | Outpatient (CLI) | payer MEDICARE ==
--- NOTE | 2019-03-29 11:00 | RAD ---
PA AND LATERAL CHEST: Date: 03/29/2019 HISTORY: Mass in neck region. COMPARISON: 10/31/2017 study. FINDINGS: Heart size appears slightly enlarged. Mediastinal structures appear unremarkable. Lungs are clear of infiltrates. Scoliotic changes of the spine noted. IMPRESSION: Mild cardiomegaly. POS: [facility]
== END 2019-03-29 09:32 | disposition home or self-care (01) ==
LOC: SCSRAD 09:31
PROVIDERS: ATTEND Nurse Practitioner Family
DX: R22.1 Localized swelling, mass and lump, neck (principal); I51.7 Cardiomegaly
CPT/HCPCS: 71046

== ENCOUNTER 2019-04-03 07:40 | Outpatient (CLI) | payer MEDICARE, OTHER ==
--- NOTE | 2019-04-03 10:12 | CT ---
CT CHEST WITH CONTRAST CLINICAL INDICATION: Localized area of swelling in the upper chest and extending into the neck. COMPARISON: None FINDINGS: Aorta: Vascular calcifications are seen in the thoracic aorta. The thoracic aorta is normal in calibe r. Prominent vascular calcification are also seen in the coronary arteries. Lungs: A calcified granuloma is present in the left lower lobe. There is minimal dependent bibasilar atelectasis. No noncalcified pulmonary nodule, mass, or pleural effusion is identified. Mediastinum: There is no evidence of lymphadenopathy. Thyroid gland: Grossly normal CT appearance. Osseous structures: Multilevel degenerative change are seen in the visualized cervical as well as inv olving the thoracic and visualized upper lumbar spine. Chest wall: No soft tissue mass is seen. A marker was placed at site of patient's palpable abnormalit y in the left supraclavicular location. No focal mass or fluid collection is seen in this region. Soft tissues are symmetric between the contralateral right side at this level. Upper abdomen: Postcholecystectomy changes are noted. There is incomplete visualization of hypodense exophytic cystic lesion midportion left kidney as well as low-density areas in the parapelvic region left kidney likely related to renal cysts based on attenuation coefficients, but these regions are incompletely imaged or evaluated. Remainder of the visualized upper abdomen has a normal CT appearance. IMPRESSION: 1. No acute findings. 2. Prominent vascular calcifications in the coronary arteries. 3. No mass or fluid collection or enlarged lymph node is seen in the region of patient's palpable abn ormality in the left supraclavicular region. This area was marked on the skin surface. Soft tissues are symmetric when compared to contralateral soft tissues on the right. 4. Hypodense lesions involving the superior pole and midportion left kidney likely due to renal cysts but are incompletely imaged on this exam for more adequate evaluation.
== END 2019-04-03 07:41 | disposition home or self-care (01) ==
LOC: SCSCT 07:40
PROVIDERS: ATTEND Nurse Practitioner Family
DX: R22.1 Localized swelling, mass and lump, neck (principal); I25.10 Atherosclerotic heart disease of native coronary artery without angina pectoris; N28.89 Other specified disorders of kidney and ureter
CPT/HCPCS: 71260

== ENCOUNTER 2019-05-24 11:58 | Outpatient (CLI) | payer MEDICARE, OTHER ==
--- NOTE | 2019-05-24 15:18 | MRI ---
MRI BRAIN WITHOUT AND WITH CONTRAST: Date: 05/24/2019 COMPARISON: None. HISTORY: Visual hallucinations. TECHNIQUE: Multiplanar, multisequence MR images were obtained of the brain without and with IV contrast. FINDINGS: This exam is extremely limited secondary to motion artifact. The brain demonstrates a few scattered f oci of high FLAIR signal in the subcortical and periventricular white matter, likely secondary to sma ll vessel ischemic disease. No restricted diffusion is seen. No obvious abnormal enhancement is seen on the postcontrast images. There is no evidence of hydrocephalus, intracranial hemorrhage, or extra-axial fluid collection. The expected flow-voids are present. The corpus callosum, pituitary, and craniocervical junction are unre markable. IMPRESSION: No significant intracranial acute abnormality on this limited exam. POS: [facility]
== END 2019-05-24 11:59 | disposition home or self-care (01) ==
LOC: SCSMRI 11:58
PROVIDERS: ATTEND Family Medicine
DX: R44.1 Visual hallucinations (principal)
CPT/HCPCS: 70553; 82565

== ENCOUNTER 2019-06-07 17:47 | Inpatient (IN) | payer MEDICARE, OTHER ==
[2019-06-07 18:49] LABS: #Basophils 0.1 thou/uL (0.0-0.2); #Eosinphils 0.1 thou/uL (0.0-0.7); #Lymphocytes 2.5 thou/uL (1.20-3.40); #Monocytes 0.7 thou/uL (0.11-0.59); #Neutrophils 3.8 thou/uL (1.40-6.50); %Basophils 1.1 % (0.0-1.0); %Eosinophils 2.1 % (0.0-10.0); %Lymphocytes 34.2 % (21.0-51.0); %Monocytes 9.9 % (0.0-10.0); %Neutrophils 52.9 % (42.0-75.0); Hemoglobin 15.2 g/dL (14.0-18.0); Mean Corpuscular HGB CONC 33.2 g/dL (32.0-36.0); Mean Corpuscular Hemoglobin 31.4 pg (27.0-31.0); Mean Corpuscular Volume 94.6 fL (78.0-98.0); Mean Platelet Volume 7.9 fL (7.4-10.4); Platelet Count 154 thou/uL (130-400); RBC Distribution Width 13.5 % (11.5-14.5); Red Blood Cell (RBC) Count 4.85 mill/uL (4.70-6.10); White Blood Cell (WBC) Count 7.2 thou/uL (4.8-10.8)
[2019-06-07 19:10] LABS: ALT (SGPT) 40 U/L (8-55); AST (SGOT) 34 U/L (5-34); Albumin 3.9 g/dL (3.4-4.8); Alkaline Phosphatase 52 U/L (40-110); Anion Gap 14 mmol/L (10-20); BUN (Urea Nitrogen) 9 mg/dL (8.4-25.7); Bilirubin, Total 0.6 mg/dL (0.2-1.2); Calc. Creatinine Clearance 0 mL/min (70-130); Calcium 9.4 mg/dL (7.8-10.44); Carbon Dioxide 27 mmol/L (23-31); Chloride 105 mmol/L (98-107); Estimated GFR-MDRD 72; Glucose 99 mg/dL (80-115); Potassium 3.8 mmol/L (3.5-5.1); Protein, Total 6.9 g/dL (5.8-8.1); Sodium 142 mmol/L (136-145)
[2019-06-07 19:55] LABS: Acetaminophen Less than 6.0 mcg/mL (10.0-30.0); Alcohol Less than 10 mg/dL (Less than 10); Salicylate Less than 8.0 mg/dL (15.0-30.0)
[2019-06-07 20:02] LABS: Bacteria/HPF None Seen HPF (None Seen); Bilirubin Negative (Negative); Blood, Urine Negative (Negative); Clarity Turbid (Clear); Glucose, Urine (Dipstick) Normal (Negative); Leukocyte Negative Leu/uL (Negative); Mucous/LPF 2+ LPF (<2+); Nitrite Negative (Negative); Protein, Urine (Dipstick) 50 mg/dL (Neg-Trace); RBC/HPF 0-3 HPF (0-3); Squamous Epithelial None Seen HPF (0-3); WBC/HPF 0-3 HPF (0-3)
[2019-06-07 20:07] LABS: Amphetamine Not Detected (NotDetected); Barbiturates Screen Not Detected (NotDetected); Benzodiazepine Screen Detected (NotDetected); Cocaine Metabolite Screen Not Detected (NotDetected); Medtox Control Line Valid? VALID (VALID); Medtox Reader # READER 4; Methadone Not Detected (NotDetected); Methamphetamine Not Detected (NotDetected); Opiate Screen Not Detected (NotDetected); Oxycodone Screen Not Detected (NotDetected); Phencyclidine (PCP) Not Detected (NotDetected); THC/Cannabinoid Screen Not Detected (NotDetected); Tricyclic Screen Not Detected (NotDetected)
[2019-06-07] MEDS ORDERED: Magnesium 2 GM/50 ML BAG (IN WATER) ONE (20:10)
[2019-06-07] MEDS ORDERED: Amiodarone 450 MG, Admixture Fee 1 EACH in Dextrose 5% in Water 250 ML IVPB SCH (20:30)
[2019-06-07] MEDS ORDERED: Amiodarone 150 MG, Admixture Fee 1 EACH in Dextrose 5% in Water 100 ML IVPB SCH (20:30)
--- NOTE | 2019-06-07 20:30 | RAD ---
Chest one view HISTORY: Dyspnea. COMPARISON: 03/29/2019. FINDINGS: Cardiac silhouette is magnified by projection. Pulmonary vasculature are unremarkable. Mediastinum is midline. No lobar consolidation or evidence of pneumothorax. monitoring analyst leads overlie the chest. IMPRESSION : No active cardiopulmonary abnormalities are demonstrated.
--- NOTE | 2019-06-07 20:36 | CT ---
CT head noncontrast HISTORY: Altered mental status. FINDINGS: There is no evidence of acute intracranial hemorrhage or infarct. The ventricles appear nor mal in size, shape and position. There is no mass effect or shift of midline structures. Visualized paranasal sinuses remain well aerated. IMPRESSION : No abnormalities are demonstrated.
[2019-06-07] MEDS ORDERED: Aspirin Chewable 81 MG TAB ONE (21:18)
[2019-06-07] MEDS ORDERED: HYDROcodone/Acetaminophen 5/325 mg Tablet PO PRN ×2 (21:40)
[2019-06-07] MEDS ORDERED: Acetaminophen 325 MG TAB PO PRN (21:40)
--- NOTE | 2019-06-07 22:03 | PDOC.HHP ---
Hospitalist HPI - History of Present Illness altered mental state, palpitations History of Present Illness: patient has recently been diagnosed with dementia, he is a poor historian, was alone in room at the moment of my evaluation. Case of an 68 y/o male with pmhx of CAD, HTN, hypercholesterolemia, dmt2 and dementia who was brought to hospital due to altered mental state and sob. patient refers he was on his usual state of health until a few month ago when he started with intermittent palpitation associated with sob weakness and chest pain, these episodes last about 30 mins and can happened at any time. patient also with recent development of altered mental state and balance difficultly of months of duration, which his pcp has been evaluating with negative results. patient states that he was brought to hospital today due to palpitations and sob , he refered 10/10 chest pain that radiated to his back with associated sob and palpitations. at the ed patient was found to be having v tach runs. hat brim curler on called was called and recommended admission and amiodarone drip which was started at the ed. during my evaluation patient was chest pain free with adequate sat at 96% and nsr at 76, had no complains Hospitalist ROS - Review of Systems All other systems reviewed; all pertinent +/- noted in HPI/Subj Hospitalist History - Past Medical History Cardiac: reports: CAD, HTN, Hyperlipidemia Endocrine: reports: Diabetes - Family History Family History: reports: diabetes mellitus, hypertension - Social History Smoking Status: Never smoker Alcohol: reports: None Drugs: reports: none - Exam General - other findings: obese Eye: PERRL, anicteric sclera ENT: normocephalic atraumatic, no oropharyngeal lesions, moist mucosa Neck: supple, symmetric, no JVD Heart: RRR, no murmur, no gallops, no rubs, normal peripheral pulses Respiratory: CTAB, no wheezes, no rales, no ronchi, normal chest expansion Gastrointestinal: non-distended, normal bowel sounds Extremities: no cyanosis, no clubbing Skin: normal turgor, no lesions, no rashes Neurological: cranial nerve grossly intact, normal sensation to touch, no weakness, no focal deficits Hospitalist Results - Labs Result Diagrams: 06/07/19 18:38 06/07/19 18:38 Lab results: WBC 7.2 thou/uL (4.8-10.8) 06/07/19 18:38 Hgb 15.2 g/dL (14.0-18.0) 06/07/19 18:38 Hct 45.9 % (42.0-52.0) 06/07/19 18:38 MCV 94.6 fL (78.0-98.0) 06/07/19 18:38 Plt Count 154 thou/uL (130-400) 06/07/19 18:38 Neutrophils % 52.9 % (42.0-75.0) 06/07/19 18:38 Sodium 142 mmol/L (136-145) 06/07/19 18:38 Potassium 3.8 mmol/L (3.5-5.1) 06/07/19 18:38 Chloride 105 mmol/L (98-107) 06/07/19 18:38 Carbon Dioxide 27 mmol/L (23-31) 06/07/19 18:38 BUN 9 mg/dL (8.4-25.7) 06/07/19 18:38 Creatinine 1.02 mg/dL (0.7-1.3) 06/07/19 18:38 Glucose 99 mg/dL (80-115) 06/07/19 18:38 Lactic Acid 1.9 mmol/L (0.5-2.2) 06/07/19 19:21 Calcium 9.4 mg/dL (7.8-10.44) 06/07/19 18:38 Total Bilirubin 0.6 mg/dL (0.2-1.2) 06/07/19 18:38 AST 34 U/L (5-34) 06/07/19 18:38 ALT 40 U/L (8-55) 06/07/19 18:38 Alkaline Phosphatase 52 U/L (40-110) 06/07/19 18:38 Ammonia 30 umol/L (18-72) 06/07/19 19:21 Creatine Kinase 202 U/L (30-200) H 06/07/19 18:38 Troponin I Less than 0.010 ng/mL (< 0.028) 06/07/19 18:38 Serum Total Protein 6.9 g/dL (5.8-8.1) 06/07/19 18:38 Albumin 3.9 g/dL (3.4-4.8) 06/07/19 18:38 Urine Ketones Trace mg/dL (Negative) A 06/07/19 19:34 Urine Blood Negative (Negative) 06/07/19 19:34 Urine Nitrite Negative (Negative) 06/07/19 19:34 Ur Leukocyte Esterase Negative Joao/uL (Negative) 06/07/19 19:34 Urine RBC 0-3 HPF (0-3) 06/07/19 19:34 Urine WBC 0-3 HPF (0-3) 06/07/19 19:34 Ur Squamous Epith Cells None Seen HPF (0-3) 06/07/19 19:34 Urine Bacteria None Seen HPF (None Seen) 06/07/19 19:34 - Radiology Interpretation CT scan - head Status: report reviewed by me (no acute pathology) Chest x-ray Status: report reviewed by me (no effusions consolidations or infiltrates) Hospitalist H&P A/P - Problem (1) V tach Code(s): I47.2 - VENTRICULAR TACHYCARDIA Status: Acute (2) Diabetes Code(s): E11.9 - TYPE 2 DIABETES MELLITUS WITHOUT COMPLICATIONS Status: Acute (3) Altered mental state Code(s): R41.82 - ALTERED MENTAL STATUS, UNSPECIFIED Status: Acute (4) CAD (coronary artery disease) Code(s): I25.10 - ATHSCL HEART DISEASE OF [place] CORONARY ARTERY W/O ANG PCTRS Status: Acute (5) HTN (hypertension) Code(s): I10 - ESSENTIAL (PRIMARY) HYPERTENSION Status: Acute - Plan Plan: v tach - patient w ekg consistent with a vtach run with associated sob chest pain and palpitations, pt will be admited to icu and started on amiodarone drip , hat brim curler was consulted. will order 2d echo and serial troponins to evaluate trend, inital one negative, tsh normal. chest xr w/o cardiomegaly. will order lipid panel and a1c to evaluated modifiable risk factors altered mental state - patient w hx of recent dementia which seems to be worsening. OPD workup negative so far. head ct done showed no acute pathology, normal [place] and tsh, will order a CMP and b12 to r/o metabolic encephalopathy. htn - continue home meds adjust as necessary dmt2 - will start accu checks and sliding scale adjust as necessary cad - continue home meds, beta alka statin and asa hyperlipidemia - continue statin
[2019-06-07] MEDS ORDERED: HumaLOG 300 UNITS/3 ML VIAL SC PRN (22:17)
[2019-06-07] MEDS ORDERED: Dextrose 50% Abboject 50 ML SYRINGE SLOW IVP PRN (22:17)
[2019-06-07] MEDS ORDERED: Dextrose 5% in Water 1,000 ML IV PRN (22:17)
[2019-06-07 22:18] LABS: Troponin I 0.018 ng/mL (< 0.028)
[2019-06-07 22:46] VITALS: BMI 41.2
[2019-06-07 23:15] LABS: CKMB 2.6 ng/mL (0-6.6)
[2019-06-08 01:25] LABS: Troponin I 0.013 ng/mL (< 0.028)
[2019-06-08 03:55] LABS: ALT (SGPT) 33 U/L (8-55); AST (SGOT) 29 U/L (5-34); Albumin 3.7 g/dL (3.4-4.8); Alkaline Phosphatase 52 U/L (40-110); Anion Gap 14 mmol/L (10-20); BUN (Urea Nitrogen) 8 mg/dL (8.4-25.7); Bilirubin, Total 0.6 mg/dL (0.2-1.2); Calc. Creatinine Clearance 148 mL/min (70-130); Calcium 8.9 mg/dL (7.8-10.44); Carbon Dioxide 25 mmol/L (23-31); Cardiac Risk 6.1 (Less than 4.5); Chloride 104 mmol/L (98-107); Cholesterol 171 mg/dl (< 200 Desired); Estimated GFR-MDRD 82; Globulin 2.6 g/dL (2.4-3.5); Glucose 107 mg/dL (80-115); HDL Cholesterol 28 mg/dL (>60 Neg Risk); LDL Cholesterol, Calculated 112 mg/dL; Potassium 3.2 mmol/L (3.5-5.1); Protein, Total 6.3 g/dL (5.8-8.1); Sodium 140 mmol/L (136-145); Triglycerides 153 mg/dL (Less than 150)
[2019-06-08 04:06] LABS: #Eosinphils 0.1 thou/uL (0.0-0.7); #Lymphocytes 2.2 thou/uL (1.20-3.40); #Monocytes 0.7 thou/uL (0.11-0.59); #Neutrophils 3.7 thou/uL (1.40-6.50); %Eosinophils 1.8 % (0.0-10.0); %Lymphocytes 33.3 % (21.0-51.0); %Monocytes 9.7 % (0.0-10.0); %Neutrophils 55.2 % (42.0-75.0); Hemoglobin 14.9 g/dL (14.0-18.0); Mean Corpuscular HGB CONC 33.1 g/dL (32.0-36.0); Mean Corpuscular Hemoglobin 30.9 pg (27.0-31.0); Mean Corpuscular Volume 93.2 fL (78.0-98.0); Mean Platelet Volume 7.7 fL (7.4-10.4); Platelet Count 97 thou/uL (130-400); RBC Distribution Width 13.4 % (11.5-14.5); Red Blood Cell (RBC) Count 4.82 mill/uL (4.70-6.10); White Blood Cell (WBC) Count 6.7 thou/uL (4.8-10.8)
[2019-06-08] MEDS: Enoxaparin Sodium 40 MG/0.4 ML SYRINGE SC SCH (08:51)
[2019-06-08] MEDS ORDERED: Prevnar 13-Val Conj/PF 0.5 ML SYRINGE IM ONE (09:00)
[2019-06-08] MEDS ORDERED: Ezetimibe 10 MG TAB PO SCH (10:00)
[2019-06-08] MEDS ORDERED: Potassium Chloride 40 MEQ in Sodium Chloride 0.9% 250 ML 250 ML IVPB SCH ×2 (10:00)
[2019-06-08] MEDS ORDERED: Carvedilol 25 MG TAB PO SCH (10:00)
[2019-06-08] MEDS ORDERED: Clopidogrel Bisulfate 75 MG TAB PO SCH (10:00)
[2019-06-08 10:28] LABS: Hemoglobin A1c 5.6 % (4.0-6.0)
--- NOTE | 2019-06-08 10:48 | CON ---
DATE OF CONSULTATION: HISTORY OF PRESENT ILLNESS: The patient is a 68-year-old gentleman, who presents for evaluation of weakness and altered mental status. The patient has a long history of coronary artery disease. He was seen initially in October 2003 for chest discomfort. He subsequently underwent a cardiac catheterization and was found to have diffuse coronary artery disease. He had multiple stents placed into his LAD and circumflex artery. The patient has subsequently been on medical therapy. He has done remarkably well, except for developing progressive depression and dementia. The patient has been free of any chest discomfort. He presented when his has noted that he has had progressive weakness. He has been not walking and eating. He was seen yesterday and admitted to the hospital for further evaluation. PAST MEDICAL HISTORY: 1. Coronary artery disease. 2. Hypertension. 3. Diabetes mellitus. 4. Hypertension. 5. Dyslipidemia. PAST SURGICAL HISTORY: 1. Cholecystectomy. 2. Tonsillectomy. SOCIAL HISTORY: Nonsmoker. ALLERGIES: NO KNOWN ALLERGIES. MEDICATIONS: See Nursing list. REVIEW OF SYSTEMS: Ten-point system noticeable for increasing confusion. PHYSICAL EXAMINATION: GENERAL: This is an obese gentleman, in no acute distress. VITAL SIGNS: Blood pressure 127/76. NECK: No jugular venous distention. LUNGS: Clear to auscultation. HEART: Regular rate and rhythm. Normal S1 and S2. ABDOMEN: Distended. EXTREMITIES: No edema. Vascular radial pulses are 2+. LABORATORY DATA: Sodium 140, potassium 3.2, chloride 104, bicarbonate 25, BUN 8, creatinine 0.92, glucose is 107. Troponin was 0.013. His white blood cell count 6.7, hemoglobin 14.9, hematocrit 44.9, platelets are 97. IMAGING STUDIES: His EKG revealed normal sinus rhythm with a right bundle branch block, Q-wave suggestive of previous inferior infarct. phototypesetting equipment monitor reveals there is a 5-beat run of nonsustained ventricular tachycardia. IMPRESSION: 1. Altered mental status. 2. Dementia. 3. History of coronary artery disease, status post multiple PTCA and stent placements. 4. Nonsustained ventricular tachycardia. 5. Hypertension. 6. Diabetes mellitus. 7. Dyslipidemia. This gentleman presents with altered mental status. He has a long history of depression and dementia. From a cardiac standpoint, he had a short run of nonsustained ventricular tachycardia. He underwent an echocardiogram recently that revealed normal left ventricular systolic function. With his overall poor health, we will continue medical therapy. The patient because of his dementia is not on statin therapy, at this time would add Zetia, would continue the patient on Coreg. We will follow this patient with you through his hospitalization within my office. Job ID: [id number]
[2019-06-08] MEDS: Isosorbide Mononitrate (ER) 30 MG TAB PO SCH (11:26)
--- NOTE | 2019-06-08 15:00 | PDOC.HOSPP ---
- Subjective Encounter Date: 06/08/19 Encounter Time: 09:30 Subjective: no overnight events. This morning, feeling well and is bathing. Has no complaints. Telemetry shows no additional episodes of Vtach - Objective Vital Signs & Weight: Vital Signs (12 hours) Temp Pulse Ox 06/08/19 11:15 97.3 F L 06/08/19 08:00 97 06/08/19 07:10 96.6 F L 06/08/19 03:11 96.6 F L Weight Weight 304 lb 3 oz Most Recent Monitor Data Heart Rate from ECG 62 NIBP 178/81 NIBP BP-Mean 113 Respiration from ECG 16 SpO2 85 I&O: 06/07/19 06/08/19 06/09/19 06:59 06:59 06:59 Intake Total 250 Balance 250 Result Diagrams: 06/08/19 03:26 06/08/19 03:26 Additional Labs: Accuchecks 06/08/19 06/08/19 06/07/19 10:14 06:04 22:34 POC Glucose 148 H 113 H 104 Hospitalist ROS - Review of Systems Constitutional: denies: fever, chills, sweats, weakness, malaise, other Respiratory: denies: cough, dry, shortness of breath, hemoptysis, SOB with excertion, pleuritic pain, sputum, wheezing, other Cardiovascular: denies: chest pain, palpitations, orthopnea, paroxysmal noc. dyspnea, edema, light headedness, other Gastrointestinal: denies: nausea, vomiting, abdominal pain, diarrhea, constipation, melena, hematochezia, other Genitourinary: denies: dysuria, frequency, incontinence, hematuria, retention, other - Medication Medications: Active Medications Generic Name Dose Route Start Last Admin Trade Name Freq PRN Reason Stop Dose Admin Enoxaparin Sodium 40 mg 06/08/19 09:00 06/08/19 08:51 Lovenox SC 40 mg 0900 NIEVES Administration Amiodarone HCl 450 mg/ 259 mls @ 0 mls/hr 06/07/19 20:30 06/08/19 06:15 Miscellaneous Medication 1 IVPB 06/08/19 20:30 259 mls each/ Dextrose/Water INF NIEVES Administration Protocol As Directed Isosorbide Mononitrate 30 mg 06/08/19 09:00 06/08/19 11:26 Imdur Er PO 30 mg DAILY NIEVES Administration - Exam General Appearance: NAD, awake alert General - other findings: obese Heart: RRR, no murmur, no gallops, no rubs Respiratory: CTAB, no wheezes, no rales, no ronchi Gastrointestinal: soft, non-tender, normal bowel sounds, distended Extremities: no edema Hosp A/P - Plan v tach - no additional episods based on Tele. Benign echo. Cardiology onboard. altered mental state - history of dementia; likely at baseline htn - defer to cardiology dmt2 - will start accu checks and sliding scale adjust as necessary cad - defer to cardiology
[2019-06-08] MEDS ORDERED: clonazePAM 1 MG TAB PO PRN (16:15)
[2019-06-08] MEDS: Carvedilol 25 MG TAB PO SCH (17:34)
[2019-06-08] MEDS: Fish Oil 1,000 MG CAP PO SCH (20:34)
[2019-06-08] MEDS: traZODone HCl 50 MG TAB PO SCH (20:34)
[2019-06-08] MEDS: Haloperidol Lactate 5 MG/ML VIAL IM PRN (21:21)
[2019-06-09 06:49] LABS: Anion Gap 12 mmol/L (10-20); BUN (Urea Nitrogen) 7 mg/dL (8.4-25.7); Calc. Creatinine Clearance 162 mL/min (70-130); Calcium 8.7 mg/dL (7.8-10.44); Carbon Dioxide 26 mmol/L (23-31); Chloride 107 mmol/L (98-107); Estimated GFR-MDRD Greater than 90; Glucose 94 mg/dL (80-115); Magnesium 1.8 mg/dL (1.6-2.6); Potassium 3.5 mmol/L (3.5-5.1); Sodium 141 mmol/L (136-145)
[2019-06-09] MEDS: Isosorbide Mononitrate (ER) 30 MG TAB PO SCH (09:34)
[2019-06-09] MEDS: Ezetimibe 10 MG TAB PO SCH (09:35)
[2019-06-09] MEDS: Carvedilol 25 MG TAB PO SCH ×2 (09:35→18:13)
[2019-06-09] MEDS: Clopidogrel Bisulfate 75 MG TAB PO SCH (09:35)
[2019-06-09] MEDS: Icosapent Ethyl 1 GM CAPSULE PO SCH ×2 (09:36→21:08)
[2019-06-09] MEDS: Fish Oil 1,000 MG CAP PO SCH (09:36)
[2019-06-09] MEDS: Enoxaparin Sodium 40 MG/0.4 ML SYRINGE SC SCH (10:12)
--- NOTE | 2019-06-09 10:36 | EKG ---
Test Reason : Blood Pressure : / mmHG Vent. Rate : 065 BPM Atrial Rate : 065 BPM P-R Int : 128 ms QRS Dur : 020 ms QT Int : 340 ms P-R-T Axes : -23 226 -22 degrees QTc Int : 353 ms Sinus rhythm with occasional Premature ventricular complexes Possible Right ventricular hypertrophy Lateral infarct , possibly acute Marked ST abnormality, possible inferior subendocardial injury Marked ST abnormality, possible anteroseptal subendocardial injury Abnormal ECG Inverted T waves in III, V1,V2, V3 Confirmed by ARIES FRANCES M.D. ([id number]), photograph editor VIOLA MACHUCA ([id number]) on 06/09/2019 10:36:35 AM Referred By: Confirmed By:ARIES FRANCES M.D.
--- NOTE | 2019-06-09 10:38 | EKG ---
Test Reason : Blood Pressure : / mmHG Vent. Rate : 066 BPM Atrial Rate : 066 BPM P-R Int : 152 ms QRS Dur : 136 ms QT Int : 436 ms P-R-T Axes : 000 -19 -10 degrees QTc Int : 457 ms Normal sinus rhythm Right bundle branch block Lateral infarct , age undetermined Inferior infarct , age undetermined Abnormal ECG #4 Confirmed by ARIES FRANCES M.D. ([id number]), book editor VIOLA MACHUCA ([id number]) on 06/09/2019 10:38:02 AM Referred By: Confirmed By:ARIES FRANCES M.D.
[2019-06-09] MEDS ORDERED: Losartan 25 MG TAB PO SCH (12:15)
--- NOTE | 2019-06-09 14:17 | PDOC.HOSPP ---
- Subjective Encounter Date: 06/09/19 Subjective: The patient is confused. He was placed on restraint due to agitation overnight. - Objective Vital Signs & Weight: Vital Signs (12 hours) Temp Pulse Resp BP Pulse Ox 06/09/19 12:13 98.6 F 67 23 H 156/70 H 98 06/09/19 08:15 93 L 06/09/19 07:20 98.8 F 60 15 147/69 H 93 L 06/09/19 04:00 97.7 F 61 18 130/61 95 Weight Weight 304 lb 3 oz Most Recent Monitor Data Heart Rate from ECG 65 NIBP 151/104 NIBP BP-Mean 119 Respiration from ECG 21 SpO2 98 I&O: 06/08/19 06/09/19 06/10/19 06:59 06:59 06:59 Intake Total 250 310 Output Total 350 Balance 250 310 -350 Result Diagrams: 06/08/19 03:26 06/09/19 06:21 Additional Labs: Accuchecks 06/09/19 06/09/19 06/08/19 10:42 06:10 20:43 POC Glucose 127 H 96 95 06/08/19 16:38 POC Glucose 106 Hospitalist ROS - Medication Medications: Active Medications Generic Name Dose Route Start Last Admin Trade Name Freq PRN Reason Stop Dose Admin Carvedilol 25 mg 06/08/19 17:00 06/09/19 09:35 Coreg PO 25 mg BID-WM NIEVES Administration Clopidogrel Bisulfate 75 mg 06/09/19 09:00 06/09/19 09:35 Plavix PO 75 mg DAILY NIEVES Administration Ezetimibe 10 mg 06/09/19 09:00 06/09/19 09:35 Zetia PO 10 mg DAILY NIEVES Administration Enoxaparin Sodium 40 mg 06/08/19 09:00 06/09/19 10:12 Lovenox SC Not Given 0900 NIEVES Haloperidol Lactate 2 mg 06/08/19 19:41 06/08/19 21:21 Haldol IM 2 mg Q4H PRN Administration Agitation Isosorbide Mononitrate 30 mg 06/08/19 09:00 06/09/19 09:34 Imdur Er PO 30 mg DAILY NIEVES Administration Losartan Potassium 50 mg 06/09/19 12:15 06/09/19 13:04 Cozaar PO 06/09/19 14:15 50 mg NOW NIEVES Administration Memantine 2.5 mg 06/08/19 21:00 06/09/19 09:35 Namenda PO 2.5 mg BID NIEVES Administration Miscellaneous Medication 2 gm 06/09/19 09:00 06/09/19 09:36 Vascepa PO 2 gm BID NIEVES Administration Trazodone HCl 100 mg 06/08/19 21:00 06/08/19 20:34 Desyrel PO 100 mg HS NIEVES Administration - Exam General Appearance: awake alert ENT: normocephalic atraumatic Neck: supple, no JVD Heart: RRR Respiratory: CTAB Gastrointestinal: soft Neurological: cranial nerve grossly intact, no focal deficits Hosp A/P (1) V tach Code(s): I47.2 - VENTRICULAR TACHYCARDIA Status: Acute (2) Altered mental state Code(s): R41.82 - ALTERED MENTAL STATUS, UNSPECIFIED Status: Acute (3) CAD (coronary artery disease) Code(s): I25.10 - ATHSCL HEART DISEASE OF [place] CORONARY ARTERY W/O ANG PCTRS Status: Acute (4) Diabetes Code(s): E11.9 - TYPE 2 DIABETES MELLITUS WITHOUT COMPLICATIONS Status: Acute (5) HTN (hypertension) Code(s): I10 - ESSENTIAL (PRIMARY) HYPERTENSION Status: Acute - Plan Nonsustained V. tach resolved. Continue carvedilol. Continue cardiac monitoring. Altered mental status due to dementia. Start Seroquel 50 mg every afternoon and discontinue restraints. Case management to assist with placement.
[2019-06-09] MEDS: traZODone HCl 50 MG TAB PO SCH (21:08)
[2019-06-10] MEDS: Icosapent Ethyl 1 GM CAPSULE PO SCH ×2 (09:10→20:16)
[2019-06-10] MEDS: Isosorbide Mononitrate (ER) 30 MG TAB PO SCH (09:11)
[2019-06-10] MEDS: Ezetimibe 10 MG TAB PO SCH (09:11)
[2019-06-10] MEDS: Carvedilol 25 MG TAB PO SCH ×2 (09:11→18:07)
[2019-06-10] MEDS: Losartan 25 MG TAB PO SCH (09:11)
[2019-06-10] MEDS: Clopidogrel Bisulfate 75 MG TAB PO SCH (09:12)
[2019-06-10] MEDS: Enoxaparin Sodium 40 MG/0.4 ML SYRINGE SC SCH (09:56)
--- NOTE | 2019-06-10 10:37 | PDOC.HOSPP ---
- Subjective Encounter Date: 06/10/19 Subjective: Non new complaints. No V-tach since yesterday per nursing staff. - Objective Vital Signs & Weight: Vital Signs (12 hours) Temp Pulse Resp BP Pulse Ox 06/10/19 08:07 97.4 F L 66 18 182/77 H 94 L 06/10/19 04:09 97.7 F 66 12 161/75 H 92 L 06/10/19 00:00 99.0 F 63 16 117/55 L 94 L Weight Weight 304 lb 3 oz Most Recent Monitor Data Heart Rate from ECG 65 NIBP 151/104 NIBP BP-Mean 119 Respiration from ECG 21 SpO2 98 I&O: 06/09/19 06/10/19 06/11/19 06:59 06:59 06:59 Intake Total 310 1230 Output Total 350 Balance 310 880 Result Diagrams: 06/08/19 03:26 06/09/19 06:21 Additional Labs: Accuchecks 06/10/19 06/09/19 06/09/19 05:44 20:50 17:16 POC Glucose 92 91 105 06/09/19 10:42 POC Glucose 127 H Hospitalist ROS - Medication Medications: Active Medications Generic Name Dose Route Start Last Admin Trade Name Freq PRN Reason Stop Dose Admin Carvedilol 25 mg 06/08/19 17:00 06/10/19 09:11 Coreg PO 25 mg BID-WM NIEVES Administration Clopidogrel Bisulfate 75 mg 06/09/19 09:00 06/10/19 09:12 Plavix PO 75 mg DAILY NIEVES Administration Ezetimibe 10 mg 06/09/19 09:00 06/10/19 09:11 Zetia PO 10 mg DAILY NIEVES Administration Enoxaparin Sodium 40 mg 06/08/19 09:00 06/10/19 09:56 Lovenox SC Not Given 09 NIEVES Haloperidol Lactate 2 mg 06/08/19 19:41 06/08/19 21:21 Haldol IM 2 mg Q4H PRN Administration Agitation Isosorbide Mononitrate 30 mg 06/08/19 09:00 06/10/19 09:11 Imdur Er PO 30 mg DAILY NIEVES Administration Losartan Potassium 50 mg 06/10/19 09:00 06/10/19 09:11 Cozaar PO 50 mg DAILY NIEVES Administration Memantine 2.5 mg 06/08/19 21:00 06/10/19 09:12 Namenda PO 2.5 mg BID NIEVES Administration Miscellaneous Medication 2 gm 06/09/19 09:00 06/10/19 09:10 Vascepa PO 2 gm BID NIEVES Administration Quetiapine Fumarate 50 mg 06/09/19 17:00 06/09/19 18:13 Seroquel PO 50 mg Q24HR NIEVES Administration Trazodone HCl 100 mg 06/08/19 21:00 06/09/19 21:08 Desyrel PO 100 mg HS NIEVES Administration - Exam General Appearance: awake alert ENT: normocephalic atraumatic Neck: supple Heart: RRR Respiratory: CTAB Gastrointestinal: soft, non-tender, non-distended Neurological: cranial nerve grossly intact, no weakness Hosp A/P (1) V tach Code(s): I47.2 - VENTRICULAR TACHYCARDIA Status: Acute (2) Altered mental state Code(s): R41.82 - ALTERED MENTAL STATUS, UNSPECIFIED Status: Acute (3) CAD (coronary artery disease) Code(s): I25.10 - ATHSCL HEART DISEASE OF [place] CORONARY ARTERY W/O ANG PCTRS Status: Acute (4) Diabetes Code(s): E11.9 - TYPE 2 DIABETES MELLITUS WITHOUT COMPLICATIONS Status: Acute (5) HTN (hypertension) Code(s): I10 - ESSENTIAL (PRIMARY) HYPERTENSION Status: Acute - Plan Nonsustained V. tach resolved. Continue carvedilol. Continue cardiac monitoring. Altered mental status due to dementia. Seroquel 50 mg every evening. Restraints discontinued and agitation resolved. PT and OT eval. Case management to assist with placement.
[2019-06-10] MEDS: traZODone HCl 50 MG TAB PO SCH (20:15)
[2019-06-10] MEDS: Donepezil HCl 10 MG TAB PO SCH (20:16)
[2019-06-11] MEDS: Losartan 25 MG TAB PO SCH (08:34)
[2019-06-11] MEDS: Clopidogrel Bisulfate 75 MG TAB PO SCH (08:34)
[2019-06-11] MEDS: Enoxaparin Sodium 40 MG/0.4 ML SYRINGE SC SCH (08:34)
[2019-06-11] MEDS: Carvedilol 25 MG TAB PO SCH ×2 (08:34→16:20)
[2019-06-11] MEDS: Isosorbide Mononitrate (ER) 30 MG TAB PO SCH (08:34)
[2019-06-11] MEDS: Ezetimibe 10 MG TAB PO SCH (08:34)
[2019-06-11] MEDS: Icosapent Ethyl 1 GM CAPSULE PO SCH ×2 (08:34→21:42)
--- NOTE | 2019-06-11 13:04 | PDOC.HOSPP ---
- Subjective Encounter Date: 06/11/19 Subjective: No further episodes of agitation and no evidence of V. tach over the past 24 hours. - Objective Vital Signs & Weight: Vital Signs (12 hours) Temp Pulse Pulse Resp BP BP Pulse Ox 06/11/19 11:32 98.2 F 72 14 118/56 L 93 L 06/11/19 09:18 75 120/56 L 06/11/19 07:37 98 F 60 16 130/69 92 L 06/11/19 04:00 97.4 F L 63 18 136/68 94 L Weight Weight 304 lb 3 oz Most Recent Monitor Data Heart Rate from ECG 65 NIBP 151/104 NIBP BP-Mean 119 Respiration from ECG 21 SpO2 98 I&O: 06/10/19 06/11/19 06/12/19 06:59 06:59 06:59 Intake Total 1230 300 Output Total 350 Balance 880 300 Result Diagrams: 06/08/19 03:26 06/09/19 06:21 Additional Labs: Accuchecks 06/11/19 06/11/19 06/10/19 10:37 06:44 20:08 POC Glucose 124 H 94 103 06/10/19 16:52 POC Glucose 107 Hospitalist ROS - Medication Medications: Active Medications Generic Name Dose Route Start Last Admin Trade Name Freq PRN Reason Stop Dose Admin Carvedilol 25 mg 06/08/19 17:00 06/11/19 08:34 Coreg PO 25 mg BID-WM NIEVES Administration Clopidogrel Bisulfate 75 mg 06/09/19 09:00 06/11/19 08:34 Plavix PO 75 mg DAILY NIEVES Administration Donepezil HCl 10 mg 06/08/19 21:00 06/10/19 20:16 Aricept PO 10 mg HS NIEVES Administration Ezetimibe 10 mg 06/09/19 09:00 06/11/19 08:34 Zetia PO 10 mg DAILY NIEVES Administration Enoxaparin Sodium 40 mg 06/08/19 09:00 06/11/19 08:34 Lovenox SC 40 mg 0900 NIEVES Administration Haloperidol Lactate 2 mg 06/08/19 19:41 06/08/19 21:21 Haldol IM 2 mg Q4H PRN Administration Agitation Isosorbide Mononitrate 30 mg 06/08/19 09:00 06/11/19 08:34 Imdur Er PO 30 mg DAILY NIEVES Administration Losartan Potassium 50 mg 06/10/19 09:00 06/11/19 08:34 Cozaar PO 50 mg DAILY NIEVES Administration Memantine 2.5 mg 06/08/19 21:00 06/11/19 08:34 Namenda PO 2.5 mg BID NIEVES Administration Miscellaneous Medication 2 gm 06/09/19 09:00 06/11/19 08:34 Vascepa PO 2 gm BID NIEVES Administration Quetiapine Fumarate 50 mg 06/09/19 17:00 06/10/19 18:07 Seroquel PO 50 mg Q24HR NIEVES Administration Trazodone HCl 100 mg 06/08/19 21:00 06/10/19 20:15 Desyrel PO 100 mg HS NIEVES Administration - Exam General Appearance: awake alert Neck: supple Respiratory: CTAB Gastrointestinal: soft Psychiatric: normal behavior Hosp A/P (1) V tach Code(s): I47.2 - VENTRICULAR TACHYCARDIA Status: Acute (2) Altered mental state Code(s): R41.82 - ALTERED MENTAL STATUS, UNSPECIFIED Status: Acute (3) CAD (coronary artery disease) Code(s): I25.10 - ATHSCL HEART DISEASE OF [place] CORONARY ARTERY W/O ANG PCTRS Status: Acute (4) Diabetes Code(s): E11.9 - TYPE 2 DIABETES MELLITUS WITHOUT COMPLICATIONS Status: Acute (5) HTN (hypertension) Code(s): I10 - ESSENTIAL (PRIMARY) HYPERTENSION Status: Acute - Plan Nonsustained V. tach resolved. Continue carvedilol. Continue cardiac monitoring. Altered mental status due to dementia. Seroquel 50 mg every evening. Restraints discontinued and agitation resolved. PT and OT. Pending placement.
--- NOTE | 2019-06-11 13:43 | PQF ---
CLINICAL DOCUMENTATION IMPROVEMENT CLARIFICATION FORM: ICD-10 Updated PLEASE DO AN ADDENDUM TO THE PROGRESS NOTE WITH ANY DOCUMENTATION UPDATES OR ADDITIONS AND CARRY THROUGH TO DC SUMMARY. THANK YOU. DATE: 06/11/2019 ATTN: Dr. Gillespie Please exercise your independent, professional judgment in responding to the clarification form. Clinical indicators are provided on the bottom of this form for your review Please check appropriate box(s): [ >] Encephalopathy: Type: [ >] Acute [ ] Subacute [ ] Chronic Etiology: [ > ] in the setting of underlying dementia [ ] Metabolic [ ] Unspecified [ ] Other (please specify) [ ] Other diagnosis [ ] Unable to determine In addition, please specify: Present on Admission (POA): [ > ] Yes [ ] No [ ] Unable to determine For continuity of documentation, please document condition throughout progress notes and discharge summary. Thank You. CLINICAL INDICATORS - SIGNS / SYMPTOMS / LABS / RESULTS AND LOCATION IN EMR H&P 06/06: Plan: altered mental state - pt w hx of recent dementia which seems to be worsening. 06/09 (Jose Miguel) Altered mental status due to dementia. Seroquel 50 mg every evening. Restraints discontinued and agitation resolved. RISKS: H&P 06/06: Pt has recently been diagnosed with dementia, PMH: CAD. HTN. Diabetes TREATMENT: H&P 06/06: Plan: will order a CMP and b12 to r/o metabolic encephalopathy 06/08 (Jose Miguel) He was place on restraint due to agitation overnight. Plan: Start seroquel 50 mg every afternoon and discontinue restraints Thank you, Jany (This form is maintained as a part of the permanent medical record) 2014 [employer]. All Rights Reserved Jany Khan RN, BSN [email or web address]
[2019-06-11] MEDS ORDERED: Losartan 25 MG TAB PO SCH (16:00)
[2019-06-11] MEDS ORDERED: Hydrochlorothiazide 25 MG TAB PO SCH (16:00)
[2019-06-11] MEDS: Donepezil HCl 10 MG TAB PO SCH (21:39)
[2019-06-11] MEDS: traZODone HCl 50 MG TAB PO SCH (21:39)
[2019-06-12] MEDS: Ezetimibe 10 MG TAB PO SCH (09:15)
[2019-06-12] MEDS: Isosorbide Mononitrate (ER) 30 MG TAB PO SCH (09:16)
[2019-06-12] MEDS: Carvedilol 25 MG TAB PO SCH ×2 (09:25→17:20)
[2019-06-12] MEDS: Enoxaparin Sodium 40 MG/0.4 ML SYRINGE SC SCH (09:25)
[2019-06-12] MEDS: Clopidogrel Bisulfate 75 MG TAB PO SCH (09:25)
[2019-06-12] MEDS: Losartan 25 MG TAB PO SCH (09:26)
[2019-06-12] MEDS: Hydrochlorothiazide 25 MG TAB PO SCH (09:26)
[2019-06-12] MEDS: Icosapent Ethyl 1 GM CAPSULE PO SCH ×2 (09:26→20:27)
--- NOTE | 2019-06-12 17:03 | PDOC.HOSPP ---
- Subjective Encounter Date: 06/12/19 Subjective: Confused. - Objective Vital Signs & Weight: Vital Signs (12 hours) Temp Pulse Resp BP Pulse Ox 06/12/19 12:16 97.7 F 70 16 174/82 H 96 06/12/19 07:41 98.4 F 71 16 131/67 94 L 06/12/19 05:14 97.3 F L 77 20 170/79 H 96 Weight Weight 304 lb 3 oz Most Recent Monitor Data Heart Rate from ECG 65 NIBP 151/104 NIBP BP-Mean 119 Respiration from ECG 21 SpO2 98 I&O: 06/11/19 06/12/19 06/13/19 06:59 06:59 06:59 Intake Total 840 Balance 840 Result Diagrams: 06/08/19 03:26 06/09/19 06:21 Additional Labs: Accuchecks 06/12/19 06/12/19 06/11/19 16:25 05:36 21:15 POC Glucose 92 93 85 Hospitalist ROS - Medication Medications: Active Medications Generic Name Dose Route Start Last Admin Trade Name Freq PRN Reason Stop Dose Admin Carvedilol 25 mg 06/08/19 17:00 06/12/19 09:25 Coreg PO Not Given BID- NIEVES Clopidogrel Bisulfate 75 mg 06/09/19 09:00 06/12/19 09:25 Plavix PO Not Given DAILY NIEVES Donepezil HCl 10 mg 06/08/19 21:00 06/11/19 21:39 Aricept PO 10 mg HS NIEVES Administration Ezetimibe 10 mg 06/09/19 09:00 06/12/19 09:15 Zetia PO 10 mg DAILY NIEVES Administration Enoxaparin Sodium 40 mg 06/08/19 09:00 06/12/19 09:25 Lovenox SC Not Given 0900 NIEVES Haloperidol Lactate 2 mg 06/08/19 19:41 06/08/19 21:21 Haldol IM 2 mg Q4H PRN Administration Agitation Hydrochlorothiazide 12.5 mg 06/12/19 09:00 06/12/19 09:26 Hydrochlorothiazide PO Not Given DAILY NIEVES Isosorbide Mononitrate 30 mg 06/08/19 09:00 06/12/19 09:16 Imdur Er PO 30 mg DAILY NIEVES Administration Losartan Potassium 100 mg 06/12/19 09:00 06/12/19 09:26 Cozaar PO Not Given DAILY NIEVES Memantine 2.5 mg 06/08/19 21:00 06/12/19 09:26 Namenda PO Not Given BID NIEVES Miscellaneous Medication 2 gm 06/09/19 09:00 06/12/19 09:26 Vascepa PO Not Given BID NIEVES Quetiapine Fumarate 50 mg 06/09/19 17:00 06/11/19 16:20 Seroquel PO 50 mg Q24HR NIEVES Administration Trazodone HCl 100 mg 06/08/19 21:00 06/11/19 21:39 Desyrel PO 100 mg HS NIEVES Administration - Exam General Appearance: awake alert ENT: normocephalic atraumatic Neck: supple Heart: RRR Respiratory: normal chest expansion, no tachypnea Gastrointestinal: soft, non-tender Neurological: cranial nerve grossly intact Hosp A/P (1) V tach Code(s): I47.2 - VENTRICULAR TACHYCARDIA Status: Acute (2) Altered mental state Code(s): R41.82 - ALTERED MENTAL STATUS, UNSPECIFIED Status: Acute (3) CAD (coronary artery disease) Code(s): I25.10 - ATHSCL HEART DISEASE OF [place] CORONARY ARTERY W/O ANG PCTRS Status: Acute (4) Diabetes Code(s): E11.9 - TYPE 2 DIABETES MELLITUS WITHOUT COMPLICATIONS Status: Acute (5) HTN (hypertension) Code(s): I10 - ESSENTIAL (PRIMARY) HYPERTENSION Status: Acute - Plan Nonsustained V. tach resolved. Continue carvedilol. Continue cardiac monitoring. Altered mental status due to dementia. Seroquel 50 mg every evening. Restraints discontinued and agitation resolved. PT and OT. Pending placement.
[2019-06-12] MEDS: Haloperidol Lactate 5 MG/ML VIAL IM PRN (17:11)
[2019-06-12] MEDS: Donepezil HCl 10 MG TAB PO SCH (20:27)
[2019-06-12] MEDS: traZODone HCl 50 MG TAB PO SCH (22:46)
[2019-06-13] MEDS: Isosorbide Mononitrate (ER) 30 MG TAB PO SCH (08:18)
[2019-06-13] MEDS: Clopidogrel Bisulfate 75 MG TAB PO SCH (08:18)
[2019-06-13] MEDS: Losartan 25 MG TAB PO SCH (08:18)
[2019-06-13] MEDS: Ezetimibe 10 MG TAB PO SCH (08:19)
[2019-06-13] MEDS: Hydrochlorothiazide 25 MG TAB PO SCH (08:19)
[2019-06-13] MEDS: Carvedilol 25 MG TAB PO SCH ×2 (08:20→17:50)
[2019-06-13] MEDS: Enoxaparin Sodium 40 MG/0.4 ML SYRINGE SC SCH (08:20)
[2019-06-13] MEDS: Icosapent Ethyl 1 GM CAPSULE PO SCH ×3 (09:17→20:43)
--- NOTE | 2019-06-13 15:48 | PDOC.HOSPP ---
- Subjective Subjective: No new events. - Objective Vital Signs & Weight: Vital Signs (12 hours) Temp Pulse Resp BP Pulse Ox 06/13/19 13:16 76 16 116/76 95 06/13/19 12:08 98.7 F 75 18 90/43 L 90 L 06/13/19 07:53 97.7 F 75 20 157/84 H 90 L 06/13/19 04:00 98.7 F 69 20 126/82 94 L Weight Weight 304 lb 3 oz Most Recent Monitor Data Heart Rate from ECG 65 NIBP 151/104 NIBP BP-Mean 119 Respiration from ECG 21 SpO2 98 I&O: 06/12/19 06/13/19 06/14/19 06:59 06:59 06:59 Intake Total 840 Balance 840 Result Diagrams: 06/08/19 03:26 06/09/19 06:21 Additional Labs: Accuchecks 06/13/19 06/13/19 06/12/19 11:49 04:37 20:19 POC Glucose 109 82 90 06/12/19 16:25 POC Glucose 92 Hospitalist ROS - Medication Medications: Active Medications Generic Name Dose Route Start Last Admin Trade Name Freq PRN Reason Stop Dose Admin Hydrocodone Bitart/Acetaminophen 1 tab 06/07/19 21:40 06/12/19 17:15 [place] 5/325 PO 1 tab Q4H PRN Administration Moderate Pain (4-6) Carvedilol 25 mg 06/08/19 17:00 06/13/19 08:20 Coreg PO 25 mg BID-WM NIEVES Administration Clopidogrel Bisulfate 75 mg 06/09/19 09:00 06/13/19 08:18 Plavix PO 75 mg DAILY NIEVES Administration Donepezil HCl 10 mg 06/08/19 21:00 06/12/19 20:27 Aricept PO 10 mg HS NIEVES Administration Ezetimibe 10 mg 06/09/19 09:00 06/13/19 08:19 Zetia PO 10 mg DAILY NIEVES Administration Enoxaparin Sodium 40 mg 06/08/19 09:00 06/13/19 08:20 Lovenox SC Not Given 0900 NIEVES Hydrochlorothiazide 12.5 mg 06/12/19 09:00 06/13/19 08:19 Hydrochlorothiazide PO 12.5 mg DAILY NIEVES Administration Isosorbide Mononitrate 30 mg 06/08/19 09:00 06/13/19 08:18 Imdur Er PO 30 mg DAILY NIEVES Administration Losartan Potassium 100 mg 06/12/19 09:00 06/13/19 08:18 Cozaar PO 100 mg DAILY NIEVES Administration Memantine 2.5 mg 06/08/19 21:00 06/13/19 08:19 Namenda PO 2.5 mg BID NIEVES Administration Miscellaneous Medication 2 gm 06/09/19 09:00 06/13/19 09:20 Vascepa PO 2 gm BID NIEVES Administration Quetiapine Fumarate 50 mg 06/09/19 17:00 06/12/19 17:15 Seroquel PO 50 mg Q24HR NIEVES Administration Trazodone HCl 100 mg 06/08/19 21:00 06/12/19 22:46 Desyrel PO 100 mg HS NIEVES Administration - Exam General Appearance: NAD ENT: normocephalic atraumatic Neck: supple Heart: RRR Respiratory: CTAB, normal chest expansion Gastrointestinal: soft Hosp A/P (1) V tach Code(s): I47.2 - VENTRICULAR TACHYCARDIA Status: Acute (2) Altered mental state Code(s): R41.82 - ALTERED MENTAL STATUS, UNSPECIFIED Status: Acute (3) CAD (coronary artery disease) Code(s): I25.10 - ATHSCL HEART DISEASE OF [place] CORONARY ARTERY W/O ANG PCTRS Status: Acute (4) Diabetes Code(s): E11.9 - TYPE 2 DIABETES MELLITUS WITHOUT COMPLICATIONS Status: Acute (5) HTN (hypertension) Code(s): I10 - ESSENTIAL (PRIMARY) HYPERTENSION Status: Acute - Plan Nonsustained V. tach resolved. Continue carvedilol. Continue cardiac monitoring. Altered mental status due to dementia. Seroquel 50 mg every evening. PT and OT. Pending placement.
[2019-06-13] MEDS: traZODone HCl 50 MG TAB PO SCH (20:42)
[2019-06-13] MEDS: Donepezil HCl 10 MG TAB PO SCH (20:43)
[2019-06-14] MEDS: Losartan 25 MG TAB PO SCH (07:56)
[2019-06-14] MEDS: Ezetimibe 10 MG TAB PO SCH (07:56)
[2019-06-14] MEDS: Clopidogrel Bisulfate 75 MG TAB PO SCH (07:56)
[2019-06-14] MEDS: Enoxaparin Sodium 40 MG/0.4 ML SYRINGE SC SCH (07:57)
[2019-06-14] MEDS: Hydrochlorothiazide 25 MG TAB PO SCH (07:57)
[2019-06-14] MEDS: Isosorbide Mononitrate (ER) 30 MG TAB PO SCH (07:57)
[2019-06-14] MEDS: Carvedilol 25 MG TAB PO SCH (07:57)
[2019-06-14] MEDS: Icosapent Ethyl 1 GM CAPSULE PO SCH (08:08)
[2019-06-14 13:04] VITALS: BP 111/75; TEMP 97.6
--- NOTE | 2019-06-14 22:07 | DIS ---
DATE OF ADMISSION: 06/07/2019 DATE OF DISCHARGE: 06/14/2019 DISCHARGE DIAGNOSES: 1. Nonsustained ventricular tachycardia. 2. Altered mental status due to metabolic encephalopathy versus dementia. 3. Coronary artery disease. 4. Diabetes. 5. Hypertension. DISCHARGE MEDICATIONS: 1. Tylenol Extra Strength 1 g q.6 hours as needed for pain. 2. Clonazepam 1 tablet 2 mg q.8 hours as needed for agitation. 3. Donepezil 10 mg orally nightly. 4. Quetiapine 50 mg orally nightly. 5. Trazodone 100 mg orally nightly. 6. Humira 40 mg subcu every two weeks, last dose was on 06/02/2019. 7. Atorvastatin 20 mg tablet at night. 8. Carvedilol 25 mg orally twice daily. 9. Plavix 75 mg orally nightly. 10. Losartan-HCTZ 100 mg-12.5 mg tablet daily. 11. Isosorbide mononitrate 30 mg orally daily. 12. L-lysine 500 mg orally twice daily. 13. [place]-3 fatty acid/fish oil 1000 mg orally twice daily. 14. Pioglitazone 30 mg orally nightly. HISTORY OF PRESENT ILLNESS AND HOSPITAL COURSE: The patient is a 68-year-old male with past medical history of hypertension, hypercholesterolemia, diabetes mellitus type 2, dementia, and coronary artery disease, who was brought to the hospital due to altered mental status and shortness of breath. He was in his usual state of health until a month prior to presentation when he started having intermittent palpitations and shortness of breath associated with chest pain. These episodes last about 30 minutes each. In the ER, the patient was placed on telemonitor and was found to be having some intermittent nonsustained V-tach. Wound Nurse on- call was called and amiodarone drip was started. The patient was admitted to the hospital and on subsequent visit by the street sprinkler, his V-tach episodes were noted to be short and his amiodarone was discontinued and the patient was placed on carvedilol. He was monitored on telemetry unit for 4 days with no recurrence of nonsustained V-tach. During his hospital stay, the patient became agitated and combative, and was started on Seroquel which led to improvement in the symptoms. At this time, the patient is having no acute events and is ready for discharge. Job ID: [id number] [facility]
[2019-06-16] MEDS ORDERED: HUMIRA SC SCH (09:00)
== END 2019-06-14 13:15 | DRG 308 ==
LOC: ERS 17:47 → IMCU/EMU 21:20 → 2SE 06-08 23:02 → T4-B 06-12 12:10
PROVIDERS: ADMIT Internal Medicine; ATTEND Internal Medicine
DX: I47.2 Ventricular tachycardia (principal); G93.41 Metabolic encephalopathy; I25.10 Atherosclerotic heart disease of native coronary artery without angina pectoris; E11.9 Type 2 diabetes mellitus without complications; E83.42 Hypomagnesemia; I10 Essential (primary) hypertension; E78.5 Hyperlipidemia, unspecified; F32.9 Major depressive disorder, single episode, unspecified; E78.00 Pure hypercholesterolemia, unspecified; F03.90 Unspecified dementia, unspecified severity, without behavioral disturbance, psychotic disturbance, mood disturbance, and anxiety; Z90.49 Acquired absence of other specified parts of digestive tract; Z95.5 Presence of coronary angioplasty implant and graft; Z79.4 Long term (current) use of insulin
CPT/HCPCS: 36415; 36416; 51701; 70450; 71045; 80048; 80053; 80061; 80306; 80307; 81003; 81015; 82140; 82550; 82553; 82607; 83036; 83605; 83735; 84443; 84484; 85025; 87040; 87086; 93005; 93306; 94760; 96365; 96367; 96376; J0282; J1630; J1650; J3475; J3480; J7050; J7070